=== PATIENT | male | born 1970 | race Two or more races ===

== ENCOUNTER → 2021-05-18 15:36 | Outpatient (CLI) | payer BC, SELFPAY ==
--- NOTE | 2021-05-18 | COLBX_PTH ---
PAT[facility]: [facility][id number] AGE/SX: 54/M ROOM: RE05/18/[address]: Dr. Sukh Morrell MD : [id number] BED: DIS: SPEC #: [id number] RECD: 05/18/21 14:56 STATUS: DELMY PICKETT #: [id number] REID: 05/18/21 00:[address]: Sukh Morrell DEPT: SURGICAL PATHOLOGY RECD BY: Jarrett Malik ENTERED: 05/19/21 08:47 SP TYPE: COLON BX OTHR DR: No Primary Care Phys WAS Tissues: Rectum, NOS Procedures: Surgery Specimen Level IV HEADER OPERATION: Colonoscopy PRE-OP DIAGNOSIS: Screening; rule out proctitis TISSUE SUBMITTED: Rectal biopsies MICROSCOPIC DIAGNOSIS Rectal biopsy: Fragments of colonic mucosa, no pathologic diagnosis. Negative for proctitis. See comment. JORGE:ignacia 05/20/2021 COMMENT Correlation with clinical, endoscopic findings and appropriate follow up are necessary. MICROSCOPIC DESCRIPTION Slides are reviewed. GROSS DESCRIPTION Received in fixative is one container labeled with the patient's name and designated rectal biopsy. The specimen consists of multiple irregular fragments of light gan soft tissue that in aggregate measure 0.5 x 0.4 x 0.1 cm. The specimen is totally submitted in one cassette. / SJ:ignacia 05/19/21 TC:4 CPT: 45359
== END ==
PROVIDERS: Referring Provider Internal Medicine Gastroenterology; Visit Provider Internal Medicine Gastroenterology
DX: Z12.11 Encounter for screening for malignant neoplasm of colon (principal)
CPT/HCPCS: 88305

== ENCOUNTER → 2024-08-21 | Outpatient (CLI) | payer BC, SELFPAY ==
[2024-08-21 17:03] LABS: Absolute Neutrophil Count 3.3 X10^3/uL (2.0-7.7); Basophil# 0.03 X10^3/uL; Basophil% 0.5 % (0-1); Eosinophil# 0.08 X10^3/uL; Eosinophils% 1.4 % (0-5); Hematocrit 40.4 % (40-54); Hemoglobin 13.4 g/dL (13.0-16.5); Lymphocyte % 30.8 % (19-41); Mean Corp Hgb Conc 33.2 g/dL (32-36); Mean Corpuscular Hgb 26.5 pg (27.0-32.0); Mean Platelet Vol. 11.6 fl (6.2-12.0); Monocyte# 0.45 X10^3/uL; Monocyte% 8.2 % (0-10); NRBC Flagged by Analyzer 0 % (0-5); Neutrophil # 3.25 X10^3/uL (2.7-7.7); Neutrophil % 58.9 % (47-70); Platelet Count 325 K/mm3 (150-450); RBC Distribution Width CV 14.9 % (11.6-14.6); RBC Distribution Width SD 42.8 fl (35.1-43.9); Red Blood Count 5.05 M/mm3 (4.6-6.2); White Blood Count 5.5 K/mm3 (4.4-11.0)
[2024-08-21 17:08] LABS: Erythrocyte Sedimentation Rate 11 mm/hr (0-20)
[2024-08-21 17:33] LABS: ALB/GLOB Ratio 0.9 RATIO (0.9-2.4); AST(SGOT) 23 U/L (15-37); Alanine Aminotransfer ALT/SGPT 36 U/L (16-61); Albumin, Serum 3.5 g/dL (3.2-5.0); Alkaline Phosphatase 112 U/L (45-117); Anion Gap 6 (5-15); BUN 14 mg/dL (7-18); BUN/Creat Ratio 12.6 RATIO (10-20); CRP < 2.90 mg/L (0.0-3.0); Calcium,Total 8.5 mg/dL (8.5-10.1); Chloride 108 mmol/L (98-107); Cholesterol 138 mg/dL (200); Creatinine, Serum 1.11 mg/dL (0.70-1.30); EST Glomerular Filtration Rate 73 mL/min (>60); Est Glom Filt Rate - Afr Amer 88 mL/min (>60); Globulin 3.7 g/dL (2.2-4.2); Glucose 119 mg/dL (74-106); High Density Lipoprotein 26 mg/dL; Potassium 3.5 mmol/L (3.5-5.1); Protein, Total 7.2 g/dL (6.4-8.2); Rheumatoid Factor < 10.0 IU/mL (<15); Sodium Level 138 mmol/L (136-145); Triglycerides 487 mg/dL
--- OUTSIDE RECORDS SUMMARY | 2024-08-21 19:54 | XMS RPT_ITS | CCD ---
Author Organization [facility] CliniSyid Care Team Providers Care Manager Fund Name Role Phone Sonny Joe Unavailable Unavailable Unknown, Referring Provider Unavailable Unav ailable Medications Completed/Discontinued Medications Medication Drug Class(es) Dates Sig (Normalized) Sig (Original) cholecalciferol 1000 unt oral capsule (1 source) Vitamin D Vitamin D3 25 MC G (1000 UT) Oral Capsule Refills: 0 Active colchicine 0.6 mg oral capsule (1 source) Start: 03-27-2020 take 1 tablet by mouth once daily Colchicine 0.6 MG Oral Capsule Take 1 tablet daily Quantity: 30 Refills: 5 Sonny Joe MD Start : 27-Mar-2020 Active docosahexaenoic acid 120 mg / eicosapentaenoic acid 180 mg oral capsule (1 source) Fish Oil 1000 MG Oral Capsule Refills: 0 Active Glucosamine (1 source) Glucosamine TABS Refills: 0 Active Problems Active Problems Problem Classification Problem Date Documented Da te Episodic/Chronic Other connective tissue disease (1 source) Behcet's syndrome; 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 Rheumatoid arthritis and related disease (1 source) Rheumatoid arthritis; Translations: [Rheumatoid arthritis, adult] Chronic Past or Other Problems Problem Classification Problem Date Documented Da te Episodic/Chronic NEGATED: Highlighted row has not occurred!Residual codes; unclassified (2 sources) Disease Episodic Results Test Name Value Interpretation Reference Range Facility [facility] MARAH ESPINOZA ([id number]) 1970 Shadia VIRAMONTES Date Time Provider Department 08/30/21 SANDRA FRANCESCO [facility] During your visit today, we recorded the following information about you: Los Guadalupe MD 08/31/2021 9:21 AM Signed Culture from his finger showed multiple bacteria. One of the bacteria appears resistant to the antibiotic prescribed. If his finger is not improving a different prescription may need sent in. Edith Garcia LPN 08/31/2021 3:23 PM Signed Left message for patient to return call for results and recommendations.Edith Montoya Ma 09/01/2021 9:02 AM Signed x2 attempt to reach patient. Unable to reach patient. Left VM to return call to office. Please read below and advise. Jeimy Tam 09/02/2021 3:04 PM Signed Left detailed message on a secured voicemail. Kenny Montoya Ma 09/02/2021 3:17 PM Signed Patient notified of results, verbalizes understanding of instructions. Allergies As of Date: 08/30/2021 (No Known Allergies) Date Reviewed: 08/27/2021 Reviewed by: Edith Garcia LPN - Fully Assessed Reason for Visit: Results [95] Cmt: wound Cx Prescriptions as of 09/02/2021 - cephALEXin (KEFLEX) 500 mg capsule Take 1 capsule by mouth four times daily for 10 days. - chlorhexidine (HIBICLENS) 4 % external liquid Apply to affected area once daily as needed for up to 10 days. - methotrexate 2.5 mg tablet TAKE 6 TABLETS BY MOUTH EVERY TUESDAY. - folic acid 1 mg tablet Take 1 tablet by mouth once daily. Problem List As Of Date 08/30/2021 Noted Resolved Inflammatory arthritis [M19.90] 12/25/2018 Pain in left wrist [M25.532] 12/25/2018 08/31/2019 Rheumatoid arthritis of multiple sites with neg*01/18/2019 High risk medication use [Z79.899] 01/18/2019 Encounter Status:Closed by KENNY TAM on 09/02/21 [facility] CNOVon 08-27-2021 CNOV Office Visit (UCWSTR ) MARAH ESPINOZA ([id number]) 1970 M ANA M Date Time Provider Department 08/27/21 6:00 PM GEOVANY YUSUF During your visit today, we recorded the following information about you: Temperature Pulse Respiration Blood pressure 97.5 degrees 76/minute 18/minute 144/84 Weight 79.5 kg Geovany Yusuf PA-C 08/31/2021 8:43 PM Signed Subjective HPI HPI Marah Espinoza is a 50 year old male who presents today for CC of progressive redness and tenderness of third digit that started 10 days ago. Has gotten worse since. Progressive redness and tenderness. No fevers/chills. Notes that he has a bad habit of biting his fingernails. BP 144/84 Pulse 76 Temp 36.4 ?C (97.5 ?F) (Tympanic) Resp 18 Wt 79.5 kg (175 lb 3.2 oz) SpO2 98% BMI 25.14 kg/m? ALLERGIES No Known Allergies ACTIVE PROBLEM LIST Inflammatory Arthritis Rheumatoid Arthritis of Multiple Sites With Negative Rheumatoid Factor (Hcc) High Risk Medication Use No family history on file. Social History Tobacco Use - Smoking status: Never Smoker - Smokeless tobacco: Never Used Substance Use Topics - Alcohol use: No - Drug use: No Review of Systems Constitutional: Negative for chills and fever. Objective Physical Exam Musculoskeletal: Hands: Comments: Erythematous area of fluctuance noted in paronychial region along nail's edge ulnar aspect - markedly tender to palpation. ASSESSMENT/PLAN: 1. Paronychia of finger, right - ICD9: 681.02, ICD10: L03.011 Clinical presentation c/w paronychia. IANDD performed w/ 18 G needle; Purulent discharge expressed and sent for culture. Will go ahead and treat empirically w/ keflex, and adjust treatment as necessary pending results. Discussed medication indications, proper use, and potential adverse effects. All questions and concerns addressed to patient satisfaction. Advise warm soaks, chlorhexidine antiseptic rinse rxed per pt request. - WOUND CULTURE AND GRAM STAIN - CEPHALEXIN 500 MG CAPSULE - CHLORHEXIDINE GLUCONATE 4 % TOPICAL LIQUID Pt advised to see PCP if symptoms persist or progress. Reviewed red flags with patient and when to seek care sooner. The patient indicates understanding of these issues and agrees with the plan. ERIC Lozoya PA-C 08/27/2021 6:46 PM Signed Continue to do warm soaks with antiseptic rinse 3-4 times/day, for at least 10-15 minutes per time - avoid squeezing digit excessively Will continue to spontaneously drain Start on oral antibiotics- 1 pill four times daily for ten days Watch for any spreading redness Referring Provider: SELF [200] Allergies As of Date: 08/27/2021 (No Known Allergies) Date Reviewed: 08/27/2021 Reviewed by: Edith Garcia LPN - Fully Assessed Reason for Visit: infected finger [Other] Cmt: x 10 days middle finger of right hand Primary Visit Diagnosis:Paronychia of finger, right [L03.011] Order(s):WOUND CULTURE AND GRAM STAIN [SQWCUL] Order #: [id number]. #:[id number] cephALEXin (KEFLEX) 500 mg capsuleTake 1 capsule by mouth four times daily for 10 days.Disp: 40 capsuleRfl: 0 chlorhexidine (HIBICLENS) 4 % external liquidApply to affected area once daily as needed for up to 10 days.Disp: 118 mLRfl: 1 Prescriptions as of 08/31/2021 - cephALEXin (KEFLEX) 500 mg capsule Take 1 capsule by mouth four times daily for 10 days. - chlorhexidine (HIBICLENS) 4 % external liquid Apply to affected area once daily as needed for up to 10 days. - methotrexate 2.5 mg tablet TAKE 6 TABLETS BY MOUTH EVERY TUESDAY. - folic acid 1 mg tablet Take 1 tablet by mouth once daily. Problem List As Of Date 08/27/2021 Noted Resolved Inflammatory arthritis [M19.90] 12/25/2018 Pain in left wrist [M25.532] 12/25/2018 08/31/2019 Rheumatoid arthritis of multiple sites with neg*01/18/2019 High risk medication use [Z79.899] 01/18/2019 Other instructions from your clinician: Continue to do warm soaks with antiseptic rinse 3-4 times/day, for at least 10-15 minutes per time - avoid squeezing digit excessively Will continue to spontaneously drain Start on oral antibiotics- 1 pill four times daily for ten days Watch for any spreading redness Prescriptions ordered this encounter Disp Refills Start End CEPHALEXIN 500 MG CAPSULE 40 c* 0 08/27/2021 09/06/2021 Route: ORAL Sig: Take 1 capsule by mouth four times daily for 10 days. CHLORHEXIDINE GLUCONATE 4 % TOPICAL * 118 * 1 08/27/2021 09/06/2021 Route: TOPICAL Sig: Apply to affected area once daily as needed for up to 10 days. Encounter Status:Closed by GEOVANY YUSUF on 08/31/21 Normal [facility] Wound Culture/Stainon 2020 Wound Culture/Stain Sp. Request/Comment: - Swab Smear Result - Rare Gram positive cocci --> ABNORMAL ALERT Rare --> ABNORMAL ALERT Gram negative bacilli --> ABNORMAL ALERT Rare Polymorphonuclear leukocytes Culture Result - Few Citrobacter freundii complex --> ABNORMAL ALERT Rare --> ABNORMAL ALERT Staphylococcus aureus --> ABNORMAL ALERT For wound culture, tissue or aspirates are superior to swab specimens. If a swab must be used, eSwab is preferred. ORGANISM: Citrobacter freundii complex METHOD: Minimum inhibitory concentration(Vitek) Antibiotic Interp TIM Status Ampicillin RESISTANT F Gentamicin SUSCEPTIBLE <=1 F Trimeth sulfameth SUSCEPTIBLE <=20 F Cefazolin RESISTANT F Ciprofloxacin SUSCEPTIBLE <=0.25 F Cefepime SUSCEPTIBLE <=1 F Piperacillin/Tazobac SUSCEPTIBLE <=4 F Ceftriaxone SUSCEPTIBLE <=1 F Enterobacter, Citrobacter, Serratia, and Klebsiella (formerly Enterobacter) aerogenes may develop resistance during prolonged therapy with third generation cephalosporins as a result of derepression of AmpC beta lactamase. Meropenem SUSCEPTIBLE <=0.25 F Ertapenem SUSCEPTIBLE <=0.5 F ORGANISM: Staphylococcus aureus METHOD: Minimum inhibitory concentration(Vitek) Antibiotic Interp TIM Status Erythromycin SUSCEPTIBLE <=0.25 F Clindamycin SUSCEPTIBLE 0.25 F Tetracycline SUSCEPTIBLE <=1 F Vancomycin SUSCEPTIBLE 1 F Oxacillin SUSCEPTIBLE 0.5 F Oxacillin susceptible staphylococci are susceptible to other penicillinase stable penicillins, beta lactam/beta lactamase inhibitor combinations, anti staphyloccal cephems, and carbapenems. Trimeth sulfameth SUSCEPTIBLE <=10 F Gentamicin SUSCEPTIBLE <=0.5 F Rifampin SUSCEPTIBLE <=0.5 F Rifampin should not be used alone for antimicrobial therapy. Doxycycline SUSCEPTIBLE <=0.5 F Critically abnormal [facility] Comment on above: Performed By: #### W CUL #### [facility] [address] [place] [address] [facility] [address] [place], [place] [address] HLA-B27 TYPINGon 03-29-2020 HLA-B27 TYPING Negative Normal [facility] Comment on above: Result Comment: This test was developed without FDA review. The test performance characteristics were defined and validated by the [facility] Department of Pathology, under the accreditation guidelines of [facility]. Performed By: #### C MP #### [facility] [address] [place] [address] IHSAN WITH REFLEX TO ENAon IHSAN WITH REFLEX TO LEANNE Negative Normal NEGATIVE [facility] Comment on above: Performed By: #### A NA #### [facility] [address] [place] [address] C-REACTIVE PROTEINon 020 CRP [Mass/Vol] mg/L Normal [facility] Comment on above: Result Comment: REF VALUE < 1.00 Performed By: #### C RP #### [facility] [address] [place] [address] CBCon 03-28-2020 Erythrocyte distribution width (RBC) [Ratio] 12.1 % Normal 11.5 - 14.5 [facility] Comment on above: Performed By: #### C BC #### [facility] [address] [place] [address] Hematocrit (Bld) [Volume fraction] 45.2 % Normal 41.0 - 52.0 [facility] Comment on above: Performed By: #### C BC #### [facility] [address] [place] [address] Hemoglobin (Bld) [Mass/Vol] 15.4 g/dL Normal 13.5 - 17.5 [facility] Comment on above: Performed By: #### C BC #### [facility] [address] [place] [address] MCHC (RBC) [Mass/Vol] 34.1 g/dL Normal 32.0 - 36.0 [facility] Comment on above: Performed By: #### C BC #### [facility] [address] [place] [address] MCV (RBC) [Entitic vol] 88 fL Normal 80 - 100 [facility] Comment on above: Performed By: #### C BC #### [facility] [address] [place] [address] Nucleated RBC/100 WBC (Bld) [Ratio] 0.0 /100 WBC Normal 0.0-0.0 [facility] Comment on above: Performed By: #### C BC #### [facility] [address] [place] [address] Platelets (Bld) [#/Vol] 280 10*3/uL Normal 150 - 450 [facility] Comment on above: Performed By: #### C BC #### [facility] [address] [place] [address] RBC (Bld) [#/Vol] 5.15 x10E12/L Normal 4.50 - 5.90 [facility] Comment on above: Performed By: #### C BC #### [facility] [address] [place] [address] WBC (Bld) [#/Vol] 6.2 10*3/uL Normal 4.4 - 11.3 [facility] Comment on above: Performed By: #### C BC #### [facility] [address] [place] [address] CITRULLINE ANTIBODYon 2019 CITRULLINE ANTIBODY <1 Normal [facility] Comment on above: Result Comment: THE TEST FOR ANTIBODIES SPECIFIC FOR CYCLIC CITRULLINATED PEPTIDE (CCP) HAS SHOWN TO BE VALUABLE IN THE DIAGNOSIS OF RHEUMATOID ARTHRITIS. THE DIAGNOSTIC VALUE OF ANTIBODIES TO CCP IN JUVENILE RHEUMATOID ARTHRITIS PATIENTS HAS NOT BEEN DETERMINED. ANTIBODIES TO CENTROMERE OR SS-A AND MYELOMA IGG MAY BE REACTIVE IN THIS ASSAY. REF VALUES NEGATIVE < 3 U/ML POSITIVE >=3 U/ML Performed By: #### C ITAB #### [facility] [address] [place] [address] COMPREHENSIVE PANELon 2019 Albumin [Mass/Vol] 4.5 g/dL Normal 3.4 - 5.0 [facility] Comment on above: Performed By: #### C MP #### [facility] [address] [place] [address] ALP [Catalytic activity/Vol] 54 U/L Normal 33 - 120 [facility] Comment on above: Performed By: #### C MP #### [facility] [address] [place] [address] ALT [Catalytic activity/Vol] 29 U/L Normal 10 - 52 [facility] Comment on above: Result Comment: Noreen ents treated with Sulfasalazine may generate falsely decreased results for ALT. Performed By: #### C MP #### [facility] [address] [place] [address] Anion gap [Moles/Vol] 13 mmol/L Normal 10 - 20 [facility] Comment on above: Performed By: #### C MP #### [facility] [address] [place] [address] AST [Catalytic activity/Vol] 18 U/L Normal 9 - 39 [facility] Comment on above: Performed By: #### C MP #### [facility] [address] [place] [address] Bilirubin [Mass/Vol] 0.4 mg/dL Normal 0.0 - 1.2 [facility] Comment on above: Performed By: #### C MP #### [facility] [address] [place] [address] Calcium [Mass/Vol] 10.1 mg/dL Normal 8.6 - 10.6 [facility] Comment on above: Performed By: #### C MP #### [facility] [address] [place] [address] Chloride [Moles/Vol] 105 mmol/L Normal 98 - 107 [facility] Comment on above: Performed By: #### C MP #### [facility] [address] [place] [address] Creatinine [Mass/Vol] 0.91 mg/dL Normal 0.50 - 1.30 [facility] Comment on above: Performed By: #### C MP #### [facility] [address] [place] [address] GFR- AM. >60 Normal >60 [facility] Comment on above: Result Comment: CALC ULATIONS OF ESTIMATED GFR ARE PERFORMED USING THE MDRD STUDY EQUATION FOR THE IDMS-TRACEABLE CREATININE METHODS. CLIN CHEM 2007;53:766-72 Performed By: #### C MP #### [facility] [address] [place] [address] GFR-NON AM. >60 Normal >60 [facility] Comment on above: Performed By: #### C MP #### [facility] [address] [place] [address] Glucose [Mass/Vol] 89 mg/dL Normal 74 - 99 [facility] Comment on above: Performed By: #### C MP #### [facility] [address] [place] [address] HCO3 (Bld) [Moles/Vol] 28 mmol/L Normal 21 - 32 [facility] Comment on above: Performed By: #### C MP #### [facility] [address] [place] [address] Potassium [Moles/Vol] 4.6 mmol/L Normal 3.5 - 5.3 [facility] Comment on above: Performed By: #### C MP #### [facility] [address] [place] [address] Protein [Mass/Vol] 7.1 g/dL Normal 6.4 - 8.2 [facility] Comment on above: Performed By: #### C MP #### [facility] [address] [place] [address] Sodium [Moles/Vol] 141 mmol/L Normal 136 - 145 [facility] Comment on above: Performed By: #### C MP #### [facility] [address] [place] [address] Urea nitrogen [Mass/Vol] 16 mg/dL Normal 6 - 23 [facility] Comment on above: Performed By: #### C MP #### [facility] [address] [place], [place] RHEUMATOID FACTORon 03-28-20 20 RHEUMATOID FACTOR <10 Normal 0 - 15 [facility] Comment on above: Performed By: #### R F #### [facility] [address] [place], [place] URIC ACIDon 03-28-2020 Urate [Mass/Vol] 3.8 mg/dL Low 4.0 - 7.5 [facility] Comment on above: Result Comment: Jaymie puncture immediately after or during the administration of Metamizole may lead to falsely low results. Testing should be performed immediately prior to Metamizole dosing. Performed By: #### U FATEMEH #### [facility] [address] [place], [place] ELBOW COMPLETE MIN 3 VIEWSon 03-27-2020 ELBOW COMPLETE MIN 3 VIEWS Patient Name: MARAH ESPINOZA STUDY: ELBOW COMPLETE MIN 3 VIEWS; 03/27/2020 4:30 pm INDICATION: pain. COMPARISON: None. ACCESSION NUMBER(S): [id number] ORDERING CLINICIAN: SONNY JOE TECHNIQUE: AP, lateral and oblique images of the left elbow were obtained. FINDINGS: There is no fracture, dislocation or bone destruction. There is no obvious joint effusion. COMPARISON OF FINDINGS: IMPRESSION: Unremarkable left elbow. Electronically signed by: ESAU BURGOS MD Normal [facility] KNEE , 1 OR 2 VIEWSon 2019 KNEE , 1 OR 2 VIEWS Patient Name: MARAH ESPINOZA STUDY: KNEE; 1 OR 2 VIEWS;Right; 03/27/2020 5:02 pm INDICATION: pain. COMPARISON: None. ACCESSION NUMBER(S): [id number] ORDERING CLINICIAN: SONNY JOE FINDINGS: Two views of the right knee. Normal bone mineralization. No visible acute fractures or dislocations. The joint spaces are maintained. No periosteal reaction or cortical erosive changes. The soft tissues appear unremarkable. No significant joint effusion IMPRESSION: No visible acute fractures or dislocations. Electronically signed by: SARAH RAMÍREZ MD Normal [facility] KNEE , 1 OR 2 VIEWS Patient Name: MARAH ESPINOZA STUDY: KNEE; 1 OR 2 VIEWS;Left; 03/27/2020 4:30 pm INDICATION: pain. COMPARISON: None. ACCESSION NUMBER(S): [id number] ORDERING CLINICIAN: SONNY JOE FINDINGS: Weightbearing AP and lateral views of the left knee are obtained. There is no fracture. There is no focal lysis. No articular abnormality is seen. The surrounding soft tissues are unremarkable. IMPRESSION: Normal exam of the left knee. Electronically signed by: KARLEY GARZA MD Normal [facility] SHOULDER, CMPLT MIN 2 VIEWSo n 03-27-2020 SHOULDER, CMPLT MIN 2 VIEWS Patient Name: MARAH ESPINOZA STUDY: SHOULDER, CMPLT, MIN 2 VIEWS;Left; 03/27/2020 4:30 pm INDICATION: pain. COMPARISON: None. ACCESSION NUMBER(S): [id number] ORDERING CLINICIAN: SONNY JOE FINDINGS: Three views of the left shoulder. Normal bone mineralization. No visible acute fractures or dislocations. The joint spaces are maintained. No periosteal reaction or cortical erosive changes. The soft tissues appear unremarkable. IMPRESSION: No visible acute fractures or dislocations. Electronically signed by: SARAH RAMÍREZ MD Normal [facility] WRIST, 2 VIEWSon 03-27-2020 WRIST, 2 VIEWS Patient Name: MARAH ESPINOZA STUDY: WRIST; 2 VIEWS;Left; 03/27/2020 4:45 pm INDICATION: pain. COMPARISON: None. ACCESSION NUMBER(S): [id number] ORDERING CLINICIAN: SONNY JOE FINDINGS: Two views of the left wrist. Normal bone mineralization. No visible acute fractures or dislocations. The joint spaces are maintained. No periosteal reaction or cortical erosive changes. The soft tissues appear unremarkable. IMPRESSION: No visible acute fractures or dislocations. Electronically signed by: SARAH RAMÍREZ MD Normal [facility] OBSOLETEon 11-07-2019 OBSOLETE Refill (RHBATH) MARAH ESPINOZA ([id number]) 1970 M B[place]NER Date Time Provider Department 11/07/19 EKATERINA HANNA TAHMINA During your visit today, we recorded the following information about you: Allergies As of Date: 11/07/2019 (No Known Allergies) Date Reviewed: 08/31/2019 Reviewed by: Jose Herman (Pa) - Fully Assessed Reason for Visit: Refill Request [94] Order(s):[START ON 11/10/2019] methotrexate 2.5 mg tabletTAKE 6 TABLETS BY MOUTH EVERY TUESDAY.Disp: 72 tabletRfl: 0 folic acid 1 mg tabletTake 1 tablet by mouth once daily.Disp: 90 tabletRfl: 1 Prescriptions as of 11/07/2019 Sig: METHOTREXATE SODIUM 2.5 MG TA* TAKE 6 TABLETS BY MOUTH EVERY* FOLIC ACID 1 MG TABLET Take 1 tablet by mouth once d* Problem List As Of Date 11/07/2019 Noted Resolved Inflammatory arthritis [M19.90] 12/25/2018 Pain in left wrist [M25.532] 12/25/2018 08/31/2019 Rheumatoid arthritis of multiple sites with neg*01/18/2019 High risk medication use [Z79.899] 01/18/2019 Prescriptions ordered this encounter Disp Refills Start End METHOTREXATE SODIUM 2.5 MG TABLET 72 t* 0 11/10/2019 05/08/2020 Route: ORAL Sig: TAKE 6 TABLETS BY MOUTH EVERY TUESDAY. FOLIC ACID 1 MG TABLET 90 t* 1 11/07/2019 Route: ORAL Sig: Take 1 tablet by mouth once daily. Medications Discontinued During This Encounter methotrexate 2.5 mg tablet 72 t* 0 08/18/2019 11/07/2019 Route: ORAL Sig: Take 6 tablets by mouth every Tuesday. Disc: Reason for discontinue is not on file. folic acid 1 mg tablet 90 t* 1 08/16/2019 11/07/2019 Route: ORAL Sig: Take 1 tablet by mouth once daily. Disc: Reason for discontinue is not on file. Encounter Status:Closed by JOSE HERMAN PA-C on 11/07/19 [facility] Sed Rateon 09-07-2019 Sed Rate 6 mm/hr Normal 0-15 [facility] Comment on above: Performed By: #### E SR #### [facility] [address] [place] [address] CRPon 09-06-2019 CRP [Mass/Vol] mg/L Normal 0.00-0.[address] [facility] Comment on above: Performed By: #### E SR #### [facility] [address] [place] [address] Comprehensive Panelon 2018 ALP [Catalytic activity/Vol] 79 U/L Normal 45-117 [facility] Comment on above: Performed By: #### E SR #### [facility] [address] [place] [address] Bilirubin [Mass/Vol] 0.3 mg/dL Normal 0.2-1.0 [facility] Comment on above: Performed By: #### E SR #### [facility] [address] [place] [address] Protein [Mass/Vol] 7.4 g/dL Normal 6.4-8.2 [facility] Comment on above: Performed By: #### E SR #### [facility] [address] [place] [address] ALT [Catalytic activity/Vol] 51 U/L Normal 12-78 [facility] Comment on above: Performed By: #### E SR #### [facility] [address] [place] [address] AST [Catalytic activity/Vol] 19 U/L Normal 15-37 [facility] Comment on above: Performed By: #### E SR #### [facility] [address] [place], [place] [address] Creatinine [Mass/Vol] 0.90 mg/dL Normal 0.67-1.17 [facility] Comment on above: Performed By: #### E SR #### [facility] [address] [place] [address] Glucose [Mass/Vol] 78 mg/dL Normal 70-99 [facility] Comment on above: Performed By: #### E SR #### [facility] [address] [place] [address] Albumin [Mass/Vol] 4.1 g/dL Normal 3.4-5.0 [facility] Comment on above: Performed By: #### E SR #### [facility] [address] [place], [place] [address] Anion gap [Moles/Vol] 6 mmol/L Low 8-16 [facility] Comment on above: Performed By: #### E SR #### [facility] [address] [place], [place] [address] Calcium [Mass/Vol] 9.3 mg/dL Normal 8.5-10.1 [facility] Comment on above: Performed By: #### E SR #### [facility] [address] [place], [place] [address] CO2 [Moles/Vol] 31 mmol/L Normal 21-32 [facility] Comment on above: Performed By: #### E SR #### [address] [address] Urea nitrogen [Mass/Vol] 17 mg/dL Normal 7-18 [facility] Comment on above: Performed By: #### E SR #### [address] [address] Chloride [Moles/Vol] 108 mmol/L High 98-107 [facility] Comment on above: Performed By: #### E SR #### [address] [address] Potassium [Moles/Vol] 4.3 mmol/L Normal 3.5-5.1 [facility] Comment on above: Performed By: #### E SR #### [facility] [address] [place], [place] [address] Sodium [Moles/Vol] 141 mmol/L Normal 136-145 [facility] Comment on above: Performed By: #### E SR #### [facility] [address] [place], [place] [address] Hemogram/Diffon 09-06-2019 Abs Immature Grans 0.04 thou/cmm Normal 0.00-0.05 [facility] Comment on above: Performed By: #### F ERR #### [facility] [address] [place] [address] Abs Neut (ANC) 3.95 thou/cmm Normal 1.78-5.38 [facility] Comment on above: Performed By: #### F ERR #### [facility] [address] [place] [address] Abs. Baso 0.03 thou/cmm Normal 0.01-0.08 [facility] Comment on above: Performed By: #### F ERR #### [facility] [address] [place] [address] Abs. Barton 0.48 thou/cmm Normal 0.30-0.82 [facility] Comment on above: Performed By: #### F ERR #### [facility] [address] [place] [address] Basophils/100 WBC (Bld) 0.5 % Normal [facility] Comment on above: Performed By: #### F ERR #### [facility] [address] [place] [address] Eosinophils (Bld) [#/Vol] 0.08 thou/cmm Normal 0.04-0.54 [facility] Comment on above: Performed By: #### F ERR #### [facility] [address] [place] [address] Eosinophils/100 WBC (Bld) 1.2 % Normal [facility] Comment on above: Performed By: #### F ERR #### [facility] [address] [place] [address] Erythrocyte distribution width (RBC) [Ratio] 13.4 % Normal 11.6-14.4 [facility] Comment on above: Performed By: #### F ERR #### [facility] [address] [place] [address] Hematocrit (Bld) [Volume fraction] 47.5 % Normal 40.1-51.0 [facility] Comment on above: Performed By: #### F ERR #### [facility] [address] [place] [address] Hemoglobin (Bld) [Mass/Vol] 15.9 g/dL Normal 13.7-17.5 [facility] Comment on above: Performed By: #### F ERR #### [facility] [address] [place] [address] Immature Grans 0.60 % Normal [facility] Comment on above: Performed By: #### F ERR #### [facility] [address] [place], [place] [address] Lymphocytes (Bld) [#/Vol] 1.89 thou/cmm Normal 0.84-2.85 [facility] Comment on above: Performed By: #### F ERR #### [facility] [address] [place], [place] [address] Lymphocytes/100 WBC (Bld) 29.2 % Normal [facility] Comment on above: Performed By: #### F ERR #### [facility] [address] [place] [address] MCH (RBC) [Entitic mass] 29.4 pg Normal 25.7-32.2 [facility] Comment on above: Performed By: #### F ERR #### [facility] [address] [place] [address] MCHC (RBC) [Mass/Vol] 33.5 % Normal 32.3-36.5 [facility] Comment on above: Performed By: #### F ERR #### [facility] [address] [place] [address] MCV (RBC) [Entitic vol] 88.0 fL Normal 83.2-95.6 [facility] Comment on above: Performed By: #### F ERR #### [facility] [address] [place] [address] Monocytes/100 WBC (Bld) 7.4 % Normal [facility] Comment on above: Performed By: #### F ERR #### [facility] [address] [place] [address] Platelet mean volume (Bld) [Entitic vol] 11.3 fL Normal 8.7-12.0 [facility] Comment on above: Performed By: #### F ERR #### [facility] [address] [place] [id number] Platelets (Bld) [#/Vol] 279 thou/cmm Normal 141-365 [facility] Comment on above: Performed By: #### F ERR #### [facility] [address] [place], [place] [address] RBC (Bld) [#/Vol] 5.40 mil/cmm Normal 4.63-6.08 [facility] Comment on above: Performed By: #### F ERR #### [facility] [address] [place] [address] RDW SD 43.2 fl Normal 36.1-45.8 [facility] Comment on above: Performed By: #### F ERR #### [facility] [address] [place] [address] Seg Neutrophil 61.1 % Normal [facility] Comment on above: Performed By: #### F ERR #### [facility] [address] [place] [address] WBC (Bld) [#/Vol] 6.47 thou/cmm Normal 4.23-9.07 [facility] Comment on above: Performed By: #### F ERR #### [facility] [address] [place] [address] MDRD GFRon 09-06-2019 GFR/1.73 sq M predicted among non-blacks MDRD (S/P/Bld) [Vol rate/Area] mL/min/{1.73_m2} Normal >60mL/min/1.[address] [facility] Comment on above: Result Comment: If t he patient is , multiply the result by 1.210. Performed By: #### E SR #### [facility] [address] [place] [address] CNOVon 08-31-2019 CNOV Office Visit (RHBATH ) MARAH ESPINOZA ([id number]) 1970 [facility] Date Time Provider Department 08/31/19 4:40 PM EKATERINA HANNA During your visit today, we recorded the following information about you: Pulse Blood pressure Weight Height 67/minute 122/70 73.5 kg 1.778 m Jose Herman PA-C 08/31/2019 4:27 PM Signed RHEUMATOLOGY PROGRESS NOTE Patient is here for a follow up visit for Patient presents with: Arthritis: denies any complaints. HPI: Marah Espinoza is a 48 year old male who presents inflammatory arthritis. Reports mild left PIP 2-5 pain, no swelling, no AM stiffness, no side effects to methotrexate. Brief Rheumatological history - He was diagnosed with RA 5 years ago by a science consultant in [place]. He was prescribed Celebrex. He had right knee swelling - aspiration and steroid injection was done. He now has left wrist pain and wrist since 10 days. He denies any triggering events. He took OTC pain medicine SL. He takes Ca-vit D glucosamine. ? Family history of autoimmune disease: father with joint pain. Not formally diagnosed. Siblings have bone and joint pain. Smoking status: Tobacco Use: Never ? Interval Review of Systems CONSTITUTIONAL: Recent Weight change: No Fever: No EYES: Dryness in nose: No Dryness of mouth: No Oral ulcers: No CARDIOVASCULAR: Pain in chest: No RESPIRATORY: Shortness of breath: No Cough: No GASTROINTESTINAL: Nausea: No Vomiting: No Changes in bowel movements: No Jaundice: No Heartburn: No MUSCULOSKELETAL: Per HPI INTEGUMENTARY: Rash: No HEMATOLOGIC/LYMPHATIC: Anemia: No NEUROLOGICAL SYSTEM: Headaches: No Sensitivity or pain of hands and/or feet: No PSYCHIATRIC: Anxiety: No Poor sleep: No History reviewed. No pertinent past medical history. PAST SURGICAL HISTORY Procedure Laterality Date - NONE 12/25/2018 History Review: I have reviewed and modified as needed, the following during this visit: Allergies, Past Medical History, Past Surgical History, Past Family History, Past Social History. BP 122/70 Pulse 67 Ht 177.8 cm (5' 10 ) Wt 73.5 kg (162 lb) SpO2 98% BMI 23.24 kg/m? Physical Exam GENERAL: Well appearing, alert, comfortable, in no acute distress, well-hydrated, well nourished. HEENT: Negative for external ears normal. Canals are clear. Both TMs visualized and are normal. Eye Exam normal. External nose normal, no nasal ulcer or throat ulcer. NECK: NECK Supple, no adenopathy; thyroid symmetric, normal size, no bruits CARDIAC: regular rate and rhythm, No murmur asculated. and Equal peripheral pulses RESPIRATORY: Lungs clear to auscultation. No wheezing, rhonchi, rales VASCULAR: RRR without murmur, gallop, or rubs. No ectopy. NEURO: Motor and sensory exam normal MOTOR: Normal; including tone, gait, stressed gait, power and coordination. SKIN: Negative for alopecia, skin rash, malar rash, skin lesion, skin ulcer, pits, thickening, color changes, telangiectasias, nail changes, nail ridging, nail pitting, onycholysis MUSCULOSKELETAL: DIPS: Normal PIPS: Normal MCPs: Normal Wrists: Normal Elbows: Normal Shoulders: Normal C-Spine: Normal Hips: Normal Knees: Normal Ankles: Normal MTPs / Toes: Normal Arches: Normal Lab Results: Sed Rate, Westergren 8 12/25/2018 CRP 0.77 12/25/201805/2019: CMP normal, CBC normal Serology: Low ferritin Synovial fluid 1667 PMNs 2019 - Negative rheumatoid factor CCP IHSAN ESR 18 URIC ACID 4.6 Normal vitamin D, TSH, PSA Radiology: IMPRESSION: Minimal degenerative change involving the CMC joints of the first digit, bilaterally. ?No acute findings. ?No bony erosions are Identified. IMPRESSION: Unremarkable single AP weightbearing view of both knees. ?No significant osteoarthritis. IMPRESSION: No acute findings. ?No testicular mass, hyperemia, or evidence for testicular torsion. Incidentally noted are trace bilateral hydroceles. Right-sided varicocele. Approximately 4 mm right epididymal head cyst versus spermatocele. Assessment and Plan (M06.09) Rheumatoid arthritis of multiple sites with negative rheumatoid factor (HCC) (primary encounter diagnosis) (Z79.899) High risk medication use (M25.50) Pain in joint, multiple sites 48-year-old male is here for follow up for seronegative rheumatoid arthritis. Patient reports similar episode involving right knee several years ago which was aspirated and had steroid injection. He was prescribed Celebrex for rheumatoid arthritis. RF and CCP were negative. 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 High CRP. Synovial fluid showed 16k PMN, due to clot, cell count cannot be assessed accurately. ? No rash, Raynaud's phenomenon, GI issues. He has chronic low back pain which is triggered with prolonged standing. ? Right wrist pain resolved with prednisone and steroid injection. PIP joint pain likely related tendinitis, if gets worse or swelling occurs, can consider increasing methotrexate. Doing well with methotrexate. Uncontrolled disease can lead to heart problems and malignancies like lymphomas. Labs every 3 months for drug and disease monitoring. ? Knee pain improved, if gets then he may need MRI. Likely mechanical no swelling. He was using glucosamine chondroitin supplements in the past which helped. Can take Tylenol or use topical pain creams if needed. Advised quadriceps strengthening exercises. Office Visit on 08/31/19 - CBC + DIFF - COMP METABOLIC PANEL - C-REACTIVE PROTEIN (CRP) - SED RATE WESTERGREN No orders of the defined types were placed in this encounter. Return in about 3 months (around 12/01/2019) for RA follow up. Ekaterina Hanna MD Referring Provider: EKATERINA HANNA [[id number]] Allergies As of Date: 08/31/2019 (No Known Allergies) Date Reviewed: 08/31/2019 Reviewed by: Jose Shukla) [place] - Fully Assessed Reason for Visit: Arthritis [10] Cmt: denies any complaints. Reason For Visit History Recorded Primary Visit Diagnosis:Rheumatoid arthritis of multiple sites with negative rheumatoid factor (HCC) [M06.09] Other Visit Diagnoses:High risk medication use [Z79.899] Pain in joint, multiple sites [M25.50] Order(s):CBC + DIFF [SQCBCDIF] Order #: [id number] FUTURE COMP METABOLIC PANEL [SQCMP] Order #: [id number] FUTURE C-REACTIVE PROTEIN (CRP) [SQCRP] Order #: [id number] FUTURE SED RATE WESTERGREN [SQWSR] Order #: [id number] FUTURE Prescriptions as of 08/31/2019 Sig: METHOTREXATE SODIUM 2.5 MG TA* Take 6 tablets by mouth every* FOLIC ACID 1 MG TABLET Take 1 tablet by mouth once d* Problem List As Of Date 08/31/2019 Noted Resolved Inflammatory arthritis [M19.90] INVALID FOR* Pain in left wrist [M25.532] INVALID FOR*08/31/2019 Rheumatoid arthritis of multiple sites with neg*INVALID FOR* High risk medication use [Z79.899] INVALID FOR* Disposition: Return in about 3 months (around 12/01/2019) for RA follow up. Follow-up and Disposition History Recorded Questionnaire: JILLIAN HOLLIS YEARLY ADL ASSESSMENT Toileting -> Independent Bathing -> Independent Upper Body Dressing -> Independent Lower Body Dressing -> Independent Grooming/Hygiene -> Independent Self Feeding -> Independent Home Management (laundry/cleaning/chor es/simple meal prep) -> Independent Encounter Status:Closed by EKATERINA HANNA MD on 08/31/19 [facility] PROGRESSon 08-31-2019 PROGRESS HNO ID: [id number] Author: Jose Herman (Pa) Service: ? Author Type: Physician Soil Chemist Type: Progress Notes Filed: 08/31/2019 4:29 PM Note Text: RHEUMATOLOGY PROGRESS NOTE Patient is here for a follow up visit for Patient presents with: Arthritis: denies any complaints. HPI: Marah Espinoza is a 48 year old male who presents inflammatory arthritis. Reports mild left PIP 2-5 pain, no swelling, no AM stiffness, no side effects to methotrexate. Brief Rheumatological history - He was diagnosed with RA 5 years ago by a science consultant in [place]. He was prescribed Celebrex. He had right knee swelling - aspiration and steroid injection was done. He now has left wrist pain and wrist since 10 days. He denies any triggering events. He took OTC pain medicine SL. He takes Ca-vit D glucosamine. ? Family history of autoimmune disease: father with joint pain. Not formally diagnosed. Siblings have bone and joint pain. Smoking status: Tobacco Use: Never ? Interval Review of Systems CONSTITUTIONAL: Recent Weight change: No Fever: No EYES: Dryness in nose: No Dryness of mouth: No Oral ulcers: No CARDIOVASCULAR: Pain in chest: No RESPIRATORY: Shortness of breath: No Cough: No GASTROINTESTINAL: Nausea: No Vomiting: No Changes in bowel movements: No Jaundice: No Heartburn: No MUSCULOSKELETAL: Per HPI INTEGUMENTARY: Rash: No HEMATOLOGIC/LYMPHATIC: Anemia: No NEUROLOGICAL SYSTEM: Headaches: No Sensitivity or pain of hands and/or feet: No PSYCHIATRIC: Anxiety: No Poor sleep: No History reviewed. No pertinent past medical history. PAST SURGICAL HISTORY Procedure Laterality Date - NONE 12/25/2018 History Review: I have reviewed and modified as needed, the following during this visit: Allergies, Past Medical History, Past Surgical History, Past Family History, Past Social History. BP 122/70 Pulse 67 Ht 177.8 cm (5' 10 ) Wt 73.5 kg (162 lb) SpO2 98% BMI 23.24 kg/m? Physical Exam GENERAL: Well appearing, alert, comfortable, in no acute distress, well-hydrated, well nourished. HEENT: Negative for external ears normal. Canals are clear. Both TMs visualized and are normal. Eye Exam normal. External nose normal, no nasal ulcer or throat ulcer. NECK: NECK Supple, no adenopathy; thyroid symmetric, normal size, no bruits CARDIAC: regular rate and rhythm, No murmur asculated. and Equal peripheral pulses RESPIRATORY: Lungs clear to auscultation. No wheezing, rhonchi, rales VASCULAR: RRR without murmur, gallop, or rubs. No ectopy. NEURO: Motor and sensory exam normal MOTOR: Normal; including tone, gait, stressed gait, power and coordination. SKIN: Negative for alopecia, skin rash, malar rash, skin lesion, skin ulcer, pits, thickening, color changes, telangiectasias, nail changes, nail ridging, nail pitting, onycholysis MUSCULOSKELETAL: DIPS: Normal PIPS: Normal MCPs: Normal Wrists: Normal Elbows: Normal Shoulders: Normal C-Spine: Normal Hips: Normal Knees: Normal Ankles: Normal MTPs / Toes: Normal Arches: Normal Lab Results: Sed Rate, Westergren 8 12/25/2018 CRP 0.77 12/25/201805/2019: CMP normal, CBC normal Serology: Low ferritin Synovial fluid 1667 PMNs 2019 - Negative rheumatoid factor CCP IHSAN ESR 18 URIC ACID 4.6 Normal vitamin D, TSH, PSA Radiology: IMPRESSION: Minimal degenerative change involving the CMC joints of the first digit, bilaterally. ?No acute findings. ?No bony erosions are Identified. IMPRESSION: Unremarkable single AP weightbearing view of both knees. ?No significant osteoarthritis. IMPRESSION: No acute findings. ?No testicular mass, hyperemia, or evidence for testicular torsion. Incidentally noted are trace bilateral hydroceles. Right-sided varicocele. Approximately 4 mm right epididymal head cyst versus spermatocele. Assessment and Plan (M06.09) Rheumatoid arthritis of multiple sites with negative rheumatoid factor (HCC) (primary encounter diagnosis) (Z79.899) High risk medication use (M25.50) Pain in joint, multiple sites 48-year-old male is here for follow up for seronegative rheumatoid arthritis. Patient reports similar episode involving right knee several years ago which was aspirated and had steroid injection. He was prescribed Celebrex for rheumatoid arthritis. RF and CCP were negative. 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 High CRP. Synovial fluid showed 16k PMN, due to clot, cell count cannot be assessed accurately. ? No rash, Raynaud's phenomenon, GI issues. He has chronic low back pain which is triggered with prolonged standing. ? Right wrist pain resolved with prednisone and steroid injection. PIP joint pain likely related tendinitis, if gets worse or swelling occurs, can consider increasing methotrexate. Doing well with methotrexate. Uncontrolled disease can lead to heart problems and malignancies like lymphomas. Labs every 3 months for drug and disease monitoring. ? Knee pain improved, if gets then he may need MRI. Likely mechanical no swelling. He was using glucosamine chondroitin supplements in the past which helped. Can take Tylenol or use topical pain creams if needed. Advised quadriceps strengthening exercises. Office Visit on 08/31/19 - CBC + DIFF - COMP METABOLIC PANEL - C-REACTIVE PROTEIN (CRP) - SED RATE WESTERGREN No orders of the defined types were placed in this encounter. Return in about 3 months (around 12/01/2019) for RA follow up. Ekaterina Hanna MD [facility] CNCOon 06-05-2019 CNCO Letter Text [facility] OBSOLETEon 06-04-2019 OBSOLETE Refill (RHBATH) MARAH ESPINOZA ([id number]) 1970 [facility] Date Time Provider Department 06/04/19 EKATERINA HANNA During your visit today, we recorded the following information about you: Alee An MA 06/04/2019 4:43 PM Signed Pharmacy faxed requesting the following refill. Pending Prescriptions Disp Refills METHOTREXATE SODIUM 2.5 MG TABLET 24 tablet 2 Sig: Take 6 tablets by mouth every Tuesday. [place]: No Patient last appointment: 06/01/2019 Next Appointment: 08/31/2019 Patient Phone numbers: [phone] (home) Request is for script(s) to be escript to pharmacy. Alee An MA Allergies As of Date: 06/04/2019 (No Known Allergies) Date Reviewed: 06/01/2019 [facility]ed by: [facility] Michael - Fully Assessed Reason for Visit: Refill Request [94] Order(s):[START ON 06/09/2019] methotrexate 2.5 mg tabletTake 6 tablets by mouth every Tuesday.Disp: 24 tabletRfl: 2 Prescriptions as of 06/04/2019 Sig: METHOTREXATE SODIUM 2.5 MG TA* Take 6 tablets by mouth every* FOLIC ACID 1 MG TABLET Take 1 tablet by mouth once d* Problem List As Of Date 06/04/2019 Noted Resolved Inflammatory arthritis [M19.90] INVALID FOR* Pain in left wrist [M25.532] INVALID FOR* Rheumatoid arthritis of multiple sites with neg*INVALID FOR* High risk medication use [Z79.899] INVALID FOR* Prescriptions ordered this encounter Disp Refills Start End METHOTREXATE SODIUM 2.5 MG TABLET 24 t* 2 06/09/2019 Route: ORAL Sig: Take 6 tablets by mouth every Tuesday. Medications Discontinued During This Encounter methotrexate 2.5 mg tablet 24 t* 2 04/07/2019 06/05/2019 Route: ORAL Sig: Take 6 tablets by mouth every Tuesday. Disc: Reason for discontinue is not on file. Encounter Status:Closed by EKATERINA HANNA MD on 06/05/19 [facility] CNOVon 06-01-2019 CNOV Office Visit (TAHMINA ) MARAH ESPINOZA ([id number]) 1970 [facility] Date Time Provider Department 06/01/19 4:00 PM EKATERINA HANNA During your visit today, we recorded the following information about you: Pulse Blood pressure Weight Height 83/minute 120/78 75.3 kg 1.778 m Ekaterina Hanna MD 06/01/2019 4:23 PM Signed RHEUMATOLOGY PROGRESS NOTE Patient is here for a follow up visit for Patient presents with: Arthritis: denies any pain or swelling. HPI: Marah Espinoza is a 48 year old male who presents inflammatory arthritis. Feels better. Took prednisone 7-8 days then stopped. Reports significant improvement with methotrexate. Had diarrhea for some days but that improved. Denies any pain. Brief Rheumatological history - He was diagnosed with RA 5 years ago by a science consultant in [place]. He was prescribed Celebrex. He had right knee swelling - aspiration and steroid injection was done. He now has left wrist pain and wrist since 10 days. He denies any triggering events. He took OTC pain medicine SL. He takes Ca-vit D glucosamine. ? Family history of autoimmune disease: father with joint pain. Not formally diagnosed. Siblings have bone and joint pain. Smoking status: Tobacco Use: Never ? Interval Review of Systems CONSTITUTIONAL: Recent Weight change: No Fever: No EYES: Dryness in nose: No Dryness of mouth: No Oral ulcers: No CARDIOVASCULAR: Pain in chest: No RESPIRATORY: Shortness of breath: No Cough: No GASTROINTESTINAL: Nausea: No Vomiting: No Changes in bowel movements: No Jaundice: No Heartburn: No MUSCULOSKELETAL: Per HPI INTEGUMENTARY: Rash: No HEMATOLOGIC/LYMPHATIC: Anemia: No NEUROLOGICAL SYSTEM: Headaches: No Sensitivity or pain of hands and/or feet: No PSYCHIATRIC: Anxiety: No Poor sleep: No History reviewed. No pertinent past medical history. PAST SURGICAL HISTORY Procedure Laterality Date - NONE 12/25/2018 History Review: I have reviewed and modified as needed, the following during this visit: Allergies, Past Medical History, Past Surgical History, Past Family History, Past Social History. BP 120/78 Pulse 83 Ht 177.8 cm (5' 10 ) Wt 75.3 kg (166 lb) SpO2 99% BMI 23.82 kg/m? Physical Exam GENERAL: Well appearing, alert, comfortable, in no acute distress, well-hydrated, well nourished. HEENT: Negative for external ears normal. Canals are clear. Both TMs visualized and are normal. Eye Exam normal. External nose normal, no nasal ulcer or throat ulcer. NECK: NECK Supple, no adenopathy; thyroid symmetric, normal size, no bruits CARDIAC: regular rate and rhythm, No murmur asculated. and Equal peripheral pulses RESPIRATORY: Lungs clear to auscultation. No wheezing, rhonchi, rales VASCULAR: RRR without murmur, gallop, or rubs. No ectopy. NEURO: Motor and sensory exam normal MOTOR: Normal; including tone, gait, stressed gait, power and coordination. SKIN: Negative for alopecia, skin rash, malar rash, skin lesion, skin ulcer, pits, thickening, color changes, telangiectasias, nail changes, nail ridging, nail pitting, onycholysis MUSCULOSKELETAL: DIPS: Normal PIPS: Normal MCPs: Normal Wrists: Normal Elbows: Normal Shoulders: Normal C-Spine: Normal Hips: Normal Knees: Normal Ankles: Normal MTPs / Toes: Normal Arches: Normal Lab Results: Sed Rate, Rogerren 8 12/25/2018 CRP 0.77 12/25/2018 Serology: Low ferritin Synovial fluid 1667 PMNs 2019 - Negative rheumatoid factor CCP IHSAN ESR 18 URIC ACID 4.6 Normal vitamin D, TSH, PSA Radiology: IMPRESSION: Minimal degenerative change involving the CMC joints of the first digit, bilaterally. ?No acute findings. ?No bony erosions are Identified. IMPRESSION: Unremarkable single AP weightbearing view of both knees. ?No significant osteoarthritis. IMPRESSION: No acute findings. ?No testicular mass, hyperemia, or evidence for testicular torsion. Incidentally noted are trace bilateral hydroceles. Right-sided varicocele. Approximately 4 mm right epididymal head cyst versus spermatocele. Assessment and Plan (Z79.899) High risk medication use (primary encounter diagnosis) (M06.09) Rheumatoid arthritis of multiple sites with negative rheumatoid factor (HCC) (M19.90) Inflammatory arthritis 48-year-old male is here for follow up for seronegative rheumatoid arthritis. Patient reports similar episode involving right knee several years ago which was aspirated and had steroid injection. He was prescribed Celebrex for rheumatoid arthritis. RF and CCP were negative. 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 High CRP. Synovial fluid showed 16k PMN, due to clot, cell count cannot be assessed accurately. ? No rash, Raynaud's phenomenon, GI issues. He has chronic low back pain which is triggered with prolonged standing. ? Right wrist pain resolved with prednisone and steroid injection. Doing well with methotrexate. Again had a long discussion about the importance of long-term treatment. Can control disease can lead to heart problems and malignancies like lymphomas. Labs today and if normal labs every 3 months. ? If knee pain does not improve then he may need MRI. Likely mechanical no swelling. He was using glucosamine chondroitin supplements in the past which helped. He tries to go back. Can take Tylenol or use topical pain creams if needed. Advised quadriceps strengthening exercises. Office Visit on 06/01/19 - CBC + DIFF - COMP METABOLIC PANEL No orders of the defined types were placed in this encounter. Return in about 3 months (around 09/01/2019) for rheumatoid arthritis. Ekaterina Hanna MD Referring Provider: EKATERINA HANNA [[id number]] Allergies As of Date: 06/01/2019 (No Known Allergies) Date Reviewed: 06/01/2019 Reviewed by: Leigh Ann StroudCrichton Rehabilitation CenterBijal Rodriguez - Fully Assessed Reason for Visit: Arthritis [10] Cmt: denies any pain or swelling. Primary Visit Diagnosis:High risk medication use [Z79.899] Other Visit Diagnoses:Rheumatoid arthritis of multiple sites with negative rheumatoid factor (HCC) [M06.09] Inflammatory arthritis [M19.90] Order(s):CBC + DIFF [SQCBCDIF] Order #: [id number] FUTURE COMP METABOLIC PANEL [SQCMP] Order #: [id number] FUTURE Prescriptions as of 06/01/2019 Sig: METHOTREXATE SODIUM 2.5 MG TA* Take 6 tablets by mouth every* FOLIC ACID 1 MG TABLET Take 1 tablet by mouth once d* Problem List As Of Date 06/01/2019 Noted Resolved Inflammatory arthritis [M19.90] INVALID FOR* Pain in left wrist [M25.532] INVALID FOR* Rheumatoid arthritis of multiple sites with neg*INVALID FOR* High risk medication use [Z79.899] INVALID FOR* Disposition: Return in about 3 months (around 09/01/2019) for rheumatoid arthritis. Follow-up and Disposition History Recorded Questionnaire: JILLIAN HOLLIS YEARLY ADL ASSESSMENT Toileting -> Independent Bathing -> Independent Upper Body Dressing -> Independent Lower Body Dressing -> Independent Grooming/Hygiene -> Independent Self Feeding -> Independent Home Management (laundry/cleaning/chor es/simple meal prep) -> Independent Encounter Status:Closed by EKATERINA HANNA MD on 06/01/19 Normal [facility] Comprehensive Panelon 2018 ALP [Catalytic activity/Vol] 72 U/L Normal 45-117 [facility] Comment on above: Performed By: #### F ERR #### [address] [address] Bilirubin [Mass/Vol] 0.4 mg/dL Normal 0.2-1.0 [facility] Comment on above: Performed By: #### F ERR #### [address] [address] Creatinine [Mass/Vol] 1.17 mg/dL Normal 0.67-1.17 [facility] Comment on above: Performed By: #### F ERR #### [facility] [address] [place], [place] [address] Protein [Mass/Vol] 7.0 g/dL Normal 6.4-8.2 [facility] Comment on above: Performed By: #### F ERR #### [facility] [address] [place], [place] [address] ALT [Catalytic activity/Vol] 35 U/L Normal 12-78 [facility] Comment on above: Performed By: #### F ERR #### [address] [place] [address] AST [Catalytic activity/Vol] 15 U/L Normal 15-37 [facility] Comment on above: Performed By: #### F ERR #### [facility] [address] [place], [place] [address] Albumin [Mass/Vol] 3.9 g/dL Normal 3.4-5.0 [facility] Comment on above: Performed By: #### F ERR #### [facility] [address] [place], [place] [address] Anion gap [Moles/Vol] 8 mmol/L Normal 8-16 [facility] Comment on above: Performed By: #### F ERR #### [facility] [address] [place], [place] [address] Calcium [Mass/Vol] 8.8 mg/dL Normal 8.5-10.1 [facility] Comment on above: Performed By: #### F ERR #### [facility] [address] [place], [place] [address] CO2 [Moles/Vol] 27 mmol/L Normal 21-32 [facility] Comment on above: Performed By: #### F ERR #### [facility] [address] [place], [place] [address] Glucose [Mass/Vol] 95 mg/dL Normal 70-99 [facility] Comment on above: Performed By: #### F ERR #### [facility] [address] [place], [place] [address] Urea nitrogen [Mass/Vol] 13 mg/dL Normal 7-18 [facility] Comment on above: Performed By: #### F ERR #### [facility] [address] [place], [place] [address] Chloride [Moles/Vol] 108 mmol/L High 98-107 [facility] Comment on above: Performed By: #### F ERR #### [facility] [address] [place], [place] [address] Potassium [Moles/Vol] 4.0 mmol/L Normal 3.5-5.1 [facility] Comment on above: Performed By: #### F ERR #### [facility] [address] [place], [place] [address] Sodium [Moles/Vol] 139 mmol/L Normal 136-145 [facility] Comment on above: Performed By: #### F ERR #### [facility] [address] [place] [address] Hemogram/Diffon 06-01-2019 Abs Immature Grans 0.02 thou/cmm Normal 0.00-0.05 [facility] Comment on above: Performed By: #### F ERR #### [facility] [address] [place] [address] Abs Neut (ANC) 4.13 thou/cmm Normal 1.78-5.38 [facility] Comment on above: Performed By: #### F ERR #### [place] [address] Abs. Baso 0.02 thou/cmm Normal 0.01-0.08 [facility] Comment on above: Performed By: #### F ERR #### [place] [address] Abs. Barton 0.50 thou/cmm Normal 0.30-0.82 [facility] Comment on above: Performed By: #### F ERR #### [place] [address] Basophils/100 WBC (Bld) 0.3 % Normal [facility] Comment on above: Performed By: #### F ERR #### [place] [address] Eosinophils (Bld) [#/Vol] 0.05 thou/cmm Normal 0.04-0.54 [facility] Comment on above: Performed By: #### F ERR #### [place] [address] Eosinophils/100 WBC (Bld) 0.8 % Normal [facility] Comment on above: Performed By: #### F ERR #### [place] [address] Erythrocyte distribution width (RBC) [Ratio] 13.7 % Normal 11.6-14.4 [facility] Comment on above: Performed By: #### F ERR #### [facility] [address] [place], [place] [address] Hematocrit (Bld) [Volume fraction] 42.2 % Normal 40.1-51.0 [facility] Comment on above: Performed By: #### F ERR #### [facility] [address] [place], [place] [address] Hemoglobin (Bld) [Mass/Vol] 14.2 g/dL Normal 13.7-17.5 [facility] Comment on above: Performed By: #### F ERR #### [facility] [address] [place], [place] [address] Immature Grans 0.30 % Normal [facility] Comment on above: Performed By: #### F ERR #### [facility] [address] [place] [address] Lymphocytes (Bld) [#/Vol] 1.53 thou/cmm Normal 0.84-2.85 [facility] Comment on above: Performed By: #### F ERR #### [facility] [address] [place], [place] [address] Lymphocytes/100 WBC (Bld) 24.5 % Normal [facility] Comment on above: Performed By: #### F ERR #### [facility] [address] [place], [place] [address] MCH (RBC) [Entitic mass] 28.5 pg Normal 25.7-32.2 [facility] Comment on above: Performed By: #### F ERR #### [facility] [address] [place], [place] [address] MCHC (RBC) [Mass/Vol] 33.6 % Normal 32.3-36.5 [facility] Comment on above: Performed By: #### F ERR #### [facility] [address] [place], [place] [address] MCV (RBC) [Entitic vol] 84.7 fL Normal 83.2-95.6 [facility] Comment on above: Performed By: #### F ERR #### [facility] [address] [place], [place] [address] Monocytes/100 WBC (Bld) 8.0 % Normal [facility] Comment on above: Performed By: #### F ERR #### [facility] [address] [place] [address] Platelet mean volume (Bld) [Entitic vol] 11.1 fL Normal 8.7-12.0 [facility] Comment on above: Performed By: #### F ERR #### [facility] [address] [place] [address] Platelets (Bld) [#/Vol] 257 thou/cmm Normal 141-365 [facility] Comment on above: Performed By: #### F ERR #### [facility] [address] [place] [address] RBC (Bld) [#/Vol] 4.98 mil/cmm Normal 4.63-6.08 [facility] Comment on above: Performed By: #### F ERR #### [place] [address] RDW SD 42.1 fl Normal 36.1-45.8 [facility] Comment on above: Performed By: #### F ERR #### [facility] [address] [place] [address] Seg Neutrophil 66.1 % Normal [facility] Comment on above: Performed By: #### F ERR #### [facility] [address] [place] [address] WBC (Bld) [#/Vol] 6.25 thou/cmm Normal 4.23-9.07 [facility] Comment on above: Performed By: #### F ERR #### [facility] [address] [place] [address] MDRD GFRon 06-01-2019 GFR/1.73 sq M predicted among non-blacks MDRD (S/P/Bld) [Vol rate/Area] mL/min/{1.73_m2} Normal >60mL/min/1.[address] [facility] Comment on above: Result Comment: If t he patient is , multiply the result by 1.210. Performed By: #### F ERR #### [facility] [address] [place] [address] PROGRESSon 06-01-2019 PROGRESS HNO ID: [id number] Author: Ekaterina Hanna Service: ? Author Type: Physician Type: Progress Notes Filed: 06/01/2019 4:23 PM Note Text: RHEUMATOLOGY PROGRESS NOTE Patient is here for a follow up visit for Patient presents with: Arthritis: denies any pain or swelling. HPI: Marah Espinoza is a 48 year old male who presents inflammatory arthritis. Feels better. Took prednisone 7-8 days then stopped. Reports significant improvement with methotrexate. Had diarrhea for some days but that improved. Denies any pain. Brief Rheumatological history - He was diagnosed with RA 5 years ago by a science consultant in [place]. He was prescribed Celebrex. He had right knee swelling - aspiration and steroid injection was done. He now has left wrist pain and wrist since 10 days. He denies any triggering events. He took OTC pain medicine SL. He takes Ca-vit D glucosamine. ? Family history of autoimmune disease: father with joint pain. Not formally diagnosed. Siblings have bone and joint pain. Smoking status: Tobacco Use: Never ? Interval Review of Systems CONSTITUTIONAL: Recent Weight change: No Fever: No EYES: Dryness in nose: No Dryness of mouth: No Oral ulcers: No CARDIOVASCULAR: Pain in chest: No RESPIRATORY: Shortness of breath: No Cough: No GASTROINTESTINAL: Nausea: No Vomiting: No Changes in bowel movements: No Jaundice: No Heartburn: No MUSCULOSKELETAL: Per HPI INTEGUMENTARY: Rash: No HEMATOLOGIC/LYMPHATIC: Anemia: No NEUROLOGICAL SYSTEM: Headaches: No Sensitivity or pain of hands and/or feet: No PSYCHIATRIC: Anxiety: No Poor sleep: No History reviewed. No pertinent past medical history. PAST SURGICAL HISTORY Procedure Laterality Date - NONE 12/25/2018 History Review: I have reviewed and modified as needed, the following during this visit: Allergies, Past Medical History, Past Surgical History, Past Family History, Past Social History. BP 120/78 Pulse 83 Ht 177.8 cm (5' 10 ) Wt 75.3 kg (166 lb) SpO2 99% BMI 23.82 kg/m? Physical Exam GENERAL: Well appearing, alert, comfortable, in no acute distress, well-hydrated, well nourished. HEENT: Negative for external ears normal. Canals are clear. Both TMs visualized and are normal. Eye Exam normal. External nose normal, no nasal ulcer or throat ulcer. NECK: NECK Supple, no adenopathy; thyroid symmetric, normal size, no bruits CARDIAC: regular rate and rhythm, No murmur asculated. and Equal peripheral pulses RESPIRATORY: Lungs clear to auscultation. No wheezing, rhonchi, rales VASCULAR: RRR without murmur, gallop, or rubs. No ectopy. NEURO: Motor and sensory exam normal MOTOR: Normal; including tone, gait, stressed gait, power and coordination. SKIN: Negative for alopecia, skin rash, malar rash, skin lesion, skin ulcer, pits, thickening, color changes, telangiectasias, nail changes, nail ridging, nail pitting, onycholysis MUSCULOSKELETAL: DIPS: Normal PIPS: Normal MCPs: Normal Wrists: Normal Elbows: Normal Shoulders: Normal C-Spine: Normal Hips: Normal Knees: Normal Ankles: Normal MTPs / Toes: Normal Arches: Normal Lab Results: Sed Rate, Westergren 8 12/25/2018 CRP 0.77 12/25/2018 Serology: Low ferritin Synovial fluid 1667 PMNs 2019 - Negative rheumatoid factor CCP IHSAN ESR 18 URIC ACID 4.6 Normal vitamin D, TSH, PSA Radiology: IMPRESSION: Minimal degenerative change involving the CMC joints of the first digit, bilaterally. ?No acute findings. ?No bony erosions are Identified. IMPRESSION: Unremarkable single AP weightbearing view of both knees. ?No significant osteoarthritis. IMPRESSION: No acute findings. ?No testicular mass, hyperemia, or evidence for testicular torsion. Incidentally noted are trace bilateral hydroceles. Right-sided varicocele. Approximately 4 mm right epididymal head cyst versus spermatocele. Assessment and Plan (Z79.899) High risk medication use (primary encounter diagnosis) (M06.09) Rheumatoid arthritis of multiple sites with negative rheumatoid factor (HCC) (M19.90) Inflammatory arthritis 48-year-old male is here for follow up for seronegative rheumatoid arthritis. Patient reports similar episode involving right knee several years ago which was aspirated and had steroid injection. He was prescribed Celebrex for rheumatoid arthritis. RF and CCP were negative. 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 High CRP. Synovial fluid showed 16k PMN, due to clot, cell count cannot be assessed accurately. ? No rash, Raynaud's phenomenon, GI issues. He has chronic low back pain which is triggered with prolonged standing. ? Right wrist pain resolved with prednisone and steroid injection. Doing well with methotrexate. Again had a long discussion about the importance of long-term treatment. Can control disease can lead to heart problems and malignancies like lymphomas. Labs today and if normal labs every 3 months. ? If knee pain does not improve then he may need MRI. Likely mechanical no swelling. He was using glucosamine chondroitin supplements in the past which helped. He tries to go back. Can take Tylenol or use topical pain creams if needed. Advised quadriceps strengthening exercises. Office Visit on 06/01/19 - CBC + DIFF - COMP METABOLIC PANEL No orders of the defined types were placed in this encounter. Return in about 3 months (around 09/01/2019) for rheumatoid arthritis. Ektaerina Hanna MD [facility] OBSOLETEon 04-02-2019 OBSOLETE Refill (RHBATH) MARAH ESPINOZA ([id number]) 1970 [address] Date Time Provider Department 04/02/19 EKATERINA HANNA During your visit today, we recorded the following information about you: Jet Roca CMA 04/02/2019 3:10 PM Signed Pharmacy faxed requesting the following refill. Pending Prescriptions Disp Refills METHOTREXATE SODIUM 2.5 MG TABLET 24 tablet 2 Sig: Take 6 tablets by mouth every Tuesday. SYDNEY: No Patient last appointment: 03/01/2019 Next Appointment: 06/01/2019 Patient Phone numbers: [phone] (home) Request is for script(s) to be escript to pharmacy. JUAN Navarro MD 04/02/2019 3:[address] Hanna patient MD Jet Jarrell CMA 04/02/2019 4:16 PM Signed Pharmacy faxed requesting the following refill. Pending Prescriptions Disp Refills METHOTREXATE SODIUM 2.5 MG TABLET 24 tablet 2 Sig: Take 6 tablets by mouth every Tuesday. SYDNEY: No Refused Prescriptions Disp Refills methotrexate 2.5 mg tablet 24 tablet 2 Sig: Take 6 tablets by mouth every Tuesday. SYDNEY: No Refused By: ASHLIE WHITAKER MD Reason for Refusal: Patient never under Prescriber care Patient last appointment: 03/01/2019 Next Appointment: 06/01/2019 Patient Phone numbers: [phone] (home) Request is for script(s) to be escript to pharmacy. Jet Roca CMA Allergies As of Date: 04/02/2019 (No Known Allergies) Date Reviewed: 03/01/2019 Reviewed by: Ekaterina Hanna - Fully Assessed Reason for Visit: Refill Request [94] Order(s):[START ON 04/07/2019] methotrexate 2.5 mg tabletTake 6 tablets by mouth every Tuesday.Disp: 24 tabletRfl: 2 Prescriptions as of 04/02/2019 Sig: METHOTREXATE SODIUM 2.5 MG TA* Take 6 tablets by mouth every* FOLIC ACID 1 MG TABLET Take 1 tablet by mouth once d* Problem List As Of Date 04/02/2019 Noted Resolved Inflammatory arthritis [M19.90] INVALID FOR* Pain in left wrist [M25.532] INVALID FOR* Rheumatoid arthritis of multiple sites with neg*INVALID FOR* High risk medication use [Z79.899] INVALID FOR* Prescriptions ordered this encounter Disp Refills Start End METHOTREXATE SODIUM 2.5 MG TABLET 24 t* 2 04/07/2019 Route: ORAL Sig: Take 6 tablets by mouth every Tuesday. Medications Discontinued During This Encounter methotrexate 2.5 mg tablet 24 t* 2 03/03/2019 04/02/2019 Route: ORAL Sig: Take 6 tablets by mouth every Tuesday. Disc: Reason for discontinue is not on file. Encounter Status:Closed by EKATERINA HANNA MD on 04/02/19 Normal [facility] CRPon 03-02-2019 CRP [Mass/Vol] mg/L Normal 0.00-0.[address] [facility] Comment on above: Performed By: #### F ERR #### [facility] [address] [place] [address] Comprehensive Panelon 2018 ALP [Catalytic activity/Vol] 90 U/L Normal 46-116 [facility] Comment on above: Performed By: #### F ERR #### [facility] [address] [place], [place] [address] Bilirubin [Mass/Vol] 0.4 mg/dL Normal 0.2-1.0 [facility] Comment on above: Performed By: #### F ERR #### [facility] [address] [place], [place] [address] Protein [Mass/Vol] 7.0 g/dL Normal 6.4-8.2 [facility] Comment on above: Performed By: #### F ERR #### [facility] [address] [place], [place] [address] AST [Catalytic activity/Vol] 20 U/L Normal 9-37 [facility] Comment on above: Performed By: #### F ERR #### [facility] [address] [place], [place] [address] Creatinine [Mass/Vol] 1.19 mg/dL High 0.67-1.17 [facility] Comment on above: Performed By: #### F ERR #### [facility] [address] [place], [place] [address] ALT [Catalytic activity/Vol] 47 U/L Normal 12-78 [facility] Comment on above: Performed By: #### F ERR #### [facility] [address] [place], [place] [address] Albumin [Mass/Vol] 3.8 g/dL Normal 3.4-5.0 [facility] Comment on above: Performed By: #### F ERR #### [facility] [address] [place], [place] [address] Anion gap [Moles/Vol] 10 mmol/L Normal 8-16 [facility] Comment on above: Performed By: #### F ERR #### [facility] [address] [place], [place] [address] CO2 [Moles/Vol] 27 mmol/L Normal 21-32 [facility] Comment on above: Performed By: #### F ERR #### [facility] [address] [place], [place] [address] Urea nitrogen [Mass/Vol] 15 mg/dL Normal 7-18 [facility] Comment on above: Performed By: #### F ERR #### [facility] [address] [place] [address] Calcium [Mass/Vol] 8.6 mg/dL Normal 8.5-10.1 [facility] Comment on above: Performed By: #### F ERR #### [facility] [address] [place] [address] Glucose [Mass/Vol] 76 mg/dL Normal 70-99 [facility] Comment on above: Performed By: #### F ERR #### [facility] [address] [place] [address] Chloride [Moles/Vol] 108 mmol/L High 98-107 [facility] Comment on above: Performed By: #### F ERR #### [facility] [address] [place] [address] Potassium [Moles/Vol] 4.1 mmol/L Normal 3.5-5.1 [facility] Comment on above: Performed By: #### F ERR #### [facility] [address] [place] [address] Sodium [Moles/Vol] 141 mmol/L Normal 136-145 [facility] Comment on above: Performed By: #### F ERR #### [facility] [address] [place] [address] Hemogram/Diffon 03-02-2019 Abs Immature Grans 0.03 thou/cmm Normal 0.00-0.05 [facility] Comment on above: Performed By: #### F ERR #### [facility] [address] [place] [address] Abs Neut (ANC) 4.35 thou/cmm Normal 1.78-5.38 [facility] Comment on above: Performed By: #### F ERR #### [facility] [address] [place] [address] Abs. Baso 0.02 thou/cmm Normal 0.01-0.08 [facility] Comment on above: Performed By: #### F ERR #### [facility] [address] [place], [place] [address] Abs. Barton 0.70 thou/cmm Normal 0.30-0.82 [facility] Comment on above: Performed By: #### F ERR #### [facility] [address] [place], [place] [address] Basophils/100 WBC (Bld) 0.3 % Normal [facility] Comment on above: Performed By: #### F ERR #### [facility] [address] [place], [place] [address] Eosinophils (Bld) [#/Vol] 0.06 thou/cmm Normal 0.04-0.54 [facility] Comment on above: Performed By: #### F ERR #### [facility] [address] [place] [address] Eosinophils/100 WBC (Bld) 0.9 % Normal [facility] Comment on above: Performed By: #### F ERR #### [place] [address] Erythrocyte distribution width (RBC) [Ratio] 14.2 % Normal 11.6-14.4 [facility] Comment on above: Performed By: #### F ERR #### [place] [address] Hematocrit (Bld) [Volume fraction] 43.4 % Normal 40.1-51.0 [facility] Comment on above: Performed By: #### F ERR #### [place] [address] Hemoglobin (Bld) [Mass/Vol] 14.6 g/dL Normal 13.7-17.5 [facility] Comment on above: Performed By: #### F ERR #### [facility] [address] [place] [address] Immature Grans 0.40 % Normal [facility] Comment on above: Performed By: #### F ERR #### [facility] [address] [place] [address] Lymphocytes (Bld) [#/Vol] 1.76 thou/cmm Normal 0.84-2.85 [facility] Comment on above: Performed By: #### F ERR #### [facility] [address] [place], [place] [address] Lymphocytes/100 WBC (Bld) 25.4 % Normal [facility] Comment on above: Performed By: #### F ERR #### [facility] [address] [place], [place] [address] MCH (RBC) [Entitic mass] 28.5 pg Normal 25.7-32.2 [facility] Comment on above: Performed By: #### F ERR #### [facility] [address] [place], [place] [address] MCHC (RBC) [Mass/Vol] 33.6 % Normal 32.3-36.5 [facility] Comment on above: Performed By: #### F ERR #### [facility] [address] [place] [address] MCV (RBC) [Entitic vol] 84.8 fL Normal 83.2-95.6 [facility] Comment on above: Performed By: #### F ERR #### [facility] [address] [place] [address] Monocytes/100 WBC (Bld) 10.1 % Normal [facility] Comment on above: Performed By: #### F ERR #### [facility] [address] [place] [address] Platelet mean volume (Bld) [Entitic vol] 10.9 fL Normal 8.7-12.0 [facility] Comment on above: Performed By: #### F ERR #### [facility] [address] [place] [address] Platelets (Bld) [#/Vol] 285 thou/cmm Normal 141-365 [facility] Comment on above: Performed By: #### F ERR #### [facility] [address] [place], [place] [address] RBC (Bld) [#/Vol] 5.12 mil/cmm Normal 4.63-6.08 [facility] Comment on above: Performed By: #### F ERR #### [facility] [address] [place] [address] RDW SD 43.4 fl Normal 36.1-45.8 [facility] Comment on above: Performed By: #### F ERR #### [facility] [address] [place], [place] [address] Seg Neutrophil 62.9 % Normal [facility] Comment on above: Performed By: #### F ERR #### [facility] [address] [place] [id number] WBC (Bld) [#/Vol] 6.92 thou/cmm Normal 4.23-9.07 [facility] Comment on above: Performed By: #### F ERR #### [facility] [address] [place] [id number] MDRD GFRon 03-02-2019 GFR/1.73 sq M predicted among non-blacks MDRD (S/P/Bld) [Vol rate/Area] mL/min/{1.73_m2} Normal >60mL/min/1.[address] [facility] Comment on above: Result Comment: If t he patient is , multiply the result by 1.210. Performed By: #### F ERR #### [facility] [address] [id number] Sed Rateon 03-02-2019 Sed Rate 5 mm/hr Normal 0-15 [facility] Comment on above: Performed By: #### F ERR #### [facility] [address] [id number] CNOVon 03-01-2019 CNOV Office Visit (RHBATH ) MARAH ESPINOZA ([id number]) 1970 M [place] Date Time Provider Department 03/01/19 4:15 PM EKATERINA HANNA RHBLISE During your visit today, we recorded the following information about you: Temperature Pulse Blood pressure Weight 98.2 degrees 73/minute 122/78 78 kg Height 1.778 m Ekaterina Hanna MD 03/01/2019 5:20 PM Signed RHEUMATOLOGY PROGRESS NOTEPatient is here for a follow up visit for Patient presents with: Follow Up HPI: Marah Espinoza is a 48 year old male who presents inflammatory arthritis. Feels better. Took prednisone 7-8 days then stopped. Reports significant improvement with methotrexate. Had diarrhea for some days but that improved. Denies any pain. Brief Rheumatological history - He was diagnosed with RA 5 years ago by a science consultant in [place]. He was prescribed Celebrex. He had right knee swelling - aspiration and steroid injection was done. He now has left wrist pain and wrist since 10 days. He denies any triggering events. He took OTC pain medicine SL. He takes Ca-vit D glucosamine. ? Family history of autoimmune disease: father with joint pain. Not formally diagnosed. Siblings have bone and joint pain. Smoking status: Tobacco Use: Never ? Interval Review of Systems CONSTITUTIONAL: Recent Weight change: No Fever: No EYES: Dryness in nose: No Dryness of mouth: No Oral ulcers: No CARDIOVASCULAR: Pain in chest: No RESPIRATORY: Shortness of breath: No Cough: No GASTROINTESTINAL: Nausea: No Vomiting: No Changes in bowel movements: No Jaundice: No Heartburn: No MUSCULOSKELETAL: Per HPI INTEGUMENTARY: Rash: No HEMATOLOGIC/LYMPHATIC: Anemia: No NEUROLOGICAL SYSTEM: Headaches: No Sensitivity or pain of hands and/or feet: No PSYCHIATRIC: Anxiety: No Poor sleep: No History reviewed. No pertinent past medical history. PAST SURGICAL HISTORY Procedure Laterality Date - NONE 12/25/2018 History Review: I have reviewed and modified as needed, the following during this visit: Allergies, Past Medical History, Past Surgical History, Past Family History, Past Social History. BP 122/78 (BP Site: Left Arm, BP Position: Sitting) Pulse 73 Temp 36.8 ?C (98.2 ?F) Ht 177.8 cm (5' 10 ) Wt 78 kg (172 lb) BMI 24.68 kg/m? Physical Exam GENERAL: Well appearing, alert, comfortable, in no acute distress, well-hydrated, well nourished. HEENT: Negative for external ears normal. Canals are clear. Both TMs visualized and are normal. Eye Exam normal. External nose normal, no nasal ulcer or throat ulcer. NECK: NECK Supple, no adenopathy; thyroid symmetric, normal size, no bruits CARDIAC: regular rate and rhythm, No murmur asculated. and Equal peripheral pulses RESPIRATORY: Lungs clear to auscultation. No wheezing, rhonchi, rales VASCULAR: RRR without murmur, gallop, or rubs. No ectopy. NEURO: Motor and sensory exam normal MOTOR: Normal; including tone, gait, stressed gait, power and coordination. SKIN: Negative for alopecia, skin rash, malar rash, skin lesion, skin ulcer, pits, thickening, color changes, telangiectasias, nail changes, nail ridging, nail pitting, onycholysis MUSCULOSKELETAL: DIPS: Normal PIPS: Normal MCPs: Normal Wrists: Normal Elbows: Normal Shoulders: Normal C-Spine: Normal Hips: Normal Knees: Normal Ankles: Normal MTPs / Toes: Normal Arches: Normal Lab Results: Sed Rate, Westergren 8 12/25/2018 CRP 0.77 12/25/2018 Serology: Low ferritin Synovial fluid 1667 PMNs 2019 - Negative rheumatoid factor CCP IHSAN ESR 18 URIC ACID 4.6 Normal vitamin D, TSH, PSA Radiology: IMPRESSION: Minimal degenerative change involving the CMC joints of the first digit, bilaterally. ?No acute findings. ?No bony erosions are Identified. IMPRESSION: Unremarkable single AP weightbearing view of both knees. ?No significant osteoarthritis. IMPRESSION: No acute findings. ?No testicular mass, hyperemia, or evidence for testicular torsion. Incidentally noted are trace bilateral hydroceles. Right-sided varicocele. Approximately 4 mm right epididymal head cyst versus spermatocele. Assessment and Plan (Z79.899) High risk medication use (primary encounter diagnosis) (M06.09) Rheumatoid arthritis of multiple sites with negative rheumatoid factor (HCC) (M19.90) Inflammatory arthritis 48-year-old male is here for follow up for seronegative rheumatoid arthritis. Patient reports similar episode involving right knee several years ago which was aspirated and had steroid injection. He was prescribed Celebrex for rheumatoid arthritis. RF and CCP were negative. 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 High CRP. Synovial fluid showed 16k PMN, due to clot, cell count cannot be assessed accurately. ? No rash, Raynaud's phenomenon, GI issues. He has chronic low back pain which is triggered with prolonged standing. ? Right wrist pain resolved with prednisone and steroid injection. Doing well with methotrexate. Again had a long discussion about the importance of long-term treatment. Can control disease can lead to heart problems and malignancies like lymphomas. Labs today and if normal labs every 3 months. ? If knee pain does not improve then he may need MRI. Office Visit on 03/01/19 - CBC + DIFF - COMP METABOLIC PANEL - C-REACTIVE PROTEIN (CRP) - SED RATE WESTERGREN No orders of the defined types were placed in this encounter. Return in about 3 months (around 06/01/2019) for rheumatoid arthritis. MD Ekaterina Nur MD 03/02/2019 4:21 PM Signed Addended by: EKATERINA HANNA MD on: 03/02/2019 04:21 PM Modules accepted: Orders Referring Provider: SELF [[id number]] Allergies As of Date: 03/01/2019 (No Known Allergies) Date Reviewed: 03/01/2019 Reviewed by: Ekaterina Hanna - Fully Assessed Reason for Visit: Follow Up [171] Primary Visit Diagnosis:High risk medication use [Z79.899] Other Visit Diagnoses:Rheumatoid arthritis of multiple sites with negative rheumatoid factor (HCC) [M06.09] Inflammatory arthritis [M19.90] Order(s):CBC + DIFF [SQCBCDIF] Order #: [id number] FUTURE COMP METABOLIC PANEL [SQCMP] Order #: [id number] FUTURE C-REACTIVE PROTEIN (CRP) [SQCRP] Order #: [id number] FUTURE SED RATE WESTERGREN [SQWSR] Order #: [id number] FUTURE [START ON 03/03/2019] methotrexate 2.5 mg tabletTake 6 tablets by mouth every Tuesday.Disp: 24 tabletRfl: 2 folic acid 1 mg tabletTake 1 tablet by mouth once daily.Disp: 90 tabletRfl: 1 Prescriptions as of 03/01/2019 Sig: METHOTREXATE SODIUM 2.5 MG TA* Take 6 tablets by mouth every* FOLIC ACID 1 MG TABLET Take 1 tablet by mouth once d* Problem List As Of Date 03/01/2019 Noted Resolved Inflammatory arthritis [M19.90] INVALID FOR* Pain in left wrist [M25.532] INVALID FOR* Rheumatoid arthritis of multiple sites with neg*INVALID FOR* High risk medication use [Z79.899] INVALID FOR* Prescriptions ordered this encounter Disp Refills Start End METHOTREXATE SODIUM 2.5 MG TABLET 24 t* 2 03/03/2019 Route: ORAL Sig: Take 6 tablets by mouth every Tuesday. FOLIC ACID 1 MG TABLET 90 t* 1 03/02/2019 Route: ORAL Sig: Take 1 tablet by mouth once daily. Medications Discontinued During This Encounter predniSONE (DELTASONE) 10 mg tablet 14 t* 0 12/25/2018 03/02/2019 Route: ORAL Sig: Take 1 tablet by mouth once daily. Patient not taking: Reported on 01/18/2019 Disc: Course of therapy completed methotrexate 2.5 mg tablet 24 t* 1 01/20/2019 03/02/2019 Route: ORAL Sig: Take 6 tablets (15 mg) by mouth every Tuesday. Disc: Reason for discontinue is not on file. folic acid 1 mg tablet 30 t* 1 01/18/2019 03/02/2019 Route: ORAL Sig: Take 1 tablet by mouth once daily. Disc: Reason for discontinue is not on file. Disposition: Return in about 3 months (around 06/01/2019) for rheumatoid arthritis. Follow-up and Disposition History Recorded Questionnaire: JILLIAN HOLLIS YEARLY ADL ASSESSMENT Toileting -> Independent Bathing -> Independent Upper Body Dressing -> Independent Lower Body Dressing -> Independent Grooming/Hygiene -> Independent Self Feeding -> Independent Home Management (laundry/cleaning/chor es/simple meal prep) -> Independent Encounter Status:Closed by EKATERIAN HANNA MD on 03/01/19 [facility] PROGRESSon 03-01-2019 PROGRESS HNO ID: [id number] Author: Ekaterina Hanna Service: ? Author Type: Physician Type: Progress Notes Filed: 03/01/2019 5:20 PM Note Text: RHEUMATOLOGY PROGRESS NOTEPatient is here for a follow up visit for Patient presents with: Follow Up HPI: Marah Espinoza is a 48 year old male who presents inflammatory arthritis. Feels better. Took prednisone 7-8 days then stopped. Reports significant improvement with methotrexate. Had diarrhea for some days but that improved. Denies any pain. Brief Rheumatological history - He was diagnosed with RA 5 years ago by a science consultant in [place]. He was prescribed Celebrex. He had right knee swelling - aspiration and steroid injection was done. He now has left wrist pain and wrist since 10 days. He denies any triggering events. He took OTC pain medicine SL. He takes Ca-vit D glucosamine. ? Family history of autoimmune disease: father with joint pain. Not formally diagnosed. Siblings have bone and joint pain. Smoking status: Tobacco Use: Never ? Interval Review of Systems CONSTITUTIONAL: Recent Weight change: No Fever: No EYES: Dryness in nose: No Dryness of mouth: No Oral ulcers: No CARDIOVASCULAR: Pain in chest: No RESPIRATORY: Shortness of breath: No Cough: No GASTROINTESTINAL: Nausea: No Vomiting: No Changes in bowel movements: No Jaundice: No Heartburn: No MUSCULOSKELETAL: Per HPI INTEGUMENTARY: Rash: No HEMATOLOGIC/LYMPHATIC: Anemia: No NEUROLOGICAL SYSTEM: Headaches: No Sensitivity or pain of hands and/or feet: No PSYCHIATRIC: Anxiety: No Poor sleep: No History reviewed. No pertinent past medical history. PAST SURGICAL HISTORY Procedure Laterality Date - NONE 12/25/2018 History Review: I have reviewed and modified as needed, the following during this visit: Allergies, Past Medical History, Past Surgical History, Past Family History, Past Social History. BP 122/78 (BP Site: Left Arm, BP Position: Sitting) Pulse 73 Temp 36.8 ?C (98.2 ?F) Ht 177.8 cm (5' 10 ) Wt 78 kg (172 lb) BMI 24.68 kg/m? Physical Exam GENERAL: Well appearing, alert, comfortable, in no acute distress, well-hydrated, well nourished. HEENT: Negative for external ears normal. Canals are clear. Both TMs visualized and are normal. Eye Exam normal. External nose normal, no nasal ulcer or throat ulcer. NECK: NECK Supple, no adenopathy; thyroid symmetric, normal size, no bruits CARDIAC: regular rate and rhythm, No murmur asculated. and Equal peripheral pulses RESPIRATORY: Lungs clear to auscultation. No wheezing, rhonchi, rales VASCULAR: RRR without murmur, gallop, or rubs. No ectopy. NEURO: Motor and sensory exam normal MOTOR: Normal; including tone, gait, stressed gait, power and coordination. SKIN: Negative for alopecia, skin rash, malar rash, skin lesion, skin ulcer, pits, thickening, color changes, telangiectasias, nail changes, nail ridging, nail pitting, onycholysis MUSCULOSKELETAL: DIPS: Normal PIPS: Normal MCPs: Normal Wrists: Normal Elbows: Normal Shoulders: Normal C-Spine: Normal Hips: Normal Knees: Normal Ankles: Normal MTPs / Toes: Normal Arches: Normal Lab Results: Sed Rate, Westergren 8 12/25/2018 CRP 0.77 12/25/2018 Serology: Low ferritin Synovial fluid 1667 PMNs 2019 - Negative rheumatoid factor CCP IHSAN ESR 18 URIC ACID 4.6 Normal vitamin D, TSH, PSA Radiology: IMPRESSION: Minimal degenerative change involving the CMC joints of the first digit, bilaterally. ?No acute findings. ?No bony erosions are Identified. IMPRESSION: Unremarkable single AP weightbearing view of both knees. ?No significant osteoarthritis. IMPRESSION: No acute findings. ?No testicular mass, hyperemia, or evidence for testicular torsion. Incidentally noted are trace bilateral hydroceles. Right-sided varicocele. Approximately 4 mm right epididymal head cyst versus spermatocele. Assessment and Plan (Z79.899) High risk medication use (primary encounter diagnosis) (M06.09) Rheumatoid arthritis of multiple sites with negative rheumatoid factor (HCC) (M19.90) Inflammatory arthritis 48-year-old male is here for follow up for seronegative rheumatoid arthritis. Patient reports similar episode involving right knee several years ago which was aspirated and had steroid injection. He was prescribed Celebrex for rheumatoid arthritis. RF and CCP were negative. 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 High CRP. Synovial fluid showed 16k PMN, due to clot, cell count cannot be assessed accurately. ? No rash, Raynaud's phenomenon, GI issues. He has chronic low back pain which is triggered with prolonged standing. ? Right wrist pain resolved with prednisone and steroid injection. Doing well with methotrexate. Again had a long discussion about the importance of long-term treatment. Can control disease can lead to heart problems and malignancies like lymphomas. Labs today and if normal labs every 3 months. ? If knee pain does not improve then he may need MRI. Office Visit on 03/01/19 - CBC + DIFF - COMP METABOLIC PANEL - C-REACTIVE PROTEIN (CRP) - SED RATE WESTERGREN No orders of the defined types were placed in this encounter. Return in about 3 months (around 06/01/2019) for rheumatoid arthritis. Ekaterina Hanna MD [facility] CNCOon 02-19-2019 CNCO Letter Text [facility] CNOVon 01-18-2019 CNOV Office Visit (RHBATH ) MARAH ESPINOZA ([id number]) 1970 M ANA M Date Time Provider Department 01/18/19 4:15 PM EKATERINA HANNA During your visit today, we recorded the following information about you: Pulse Blood pressure Weight Height 99/minute 130/88 69.9 kg 1.778 m Ekaterina Hanna MD 01/18/2019 5:33 PM Signed RHEUMATOLOGY PROGRESS NOTEPatient is here for a follow up visit for Patient presents with: Results: discuss labs from 12/25/2018. HPI: Marah Espinoza is a 48 year old male who presents inflammatory arthritis. Feels better. Took prednisone 7-8 days then stopped. He reports pain in shoulders which chronic. Wrist pain is better, resolved. History taken via weight shifter. Brief Rheumatological history - He was diagnosed with RA 5 years ago by a science consultant in [place]. He was prescribed Celebrex. He had right knee swelling - aspiration and steroid injection was done. He now has left wrist pain and wrist since 10 days. He denies any triggering events. He took OTC pain medicine SL. He takes Ca-vit D glucosamine. ? Family history of autoimmune disease: father with joint pain. Not formally diagnosed. Siblings have bone and joint pain. Smoking status: Tobacco Use: Never ? Interval Review of Systems CONSTITUTIONAL: Recent Weight change: No Fever: No EYES: Dryness in nose: No Dryness of mouth: No Oral ulcers: No CARDIOVASCULAR: Pain in chest: No RESPIRATORY: Shortness of breath: No Cough: No GASTROINTESTINAL: Nausea: No Vomiting: No Changes in bowel movements: No Jaundice: No Heartburn: No MUSCULOSKELETAL: Per HPI INTEGUMENTARY: Rash: No HEMATOLOGIC/LYMPHATIC: Anemia: No NEUROLOGICAL SYSTEM: Headaches: No Sensitivity or pain of hands and/or feet: No PSYCHIATRIC: Anxiety: No Poor sleep: No History reviewed. No pertinent past medical history. PAST SURGICAL HISTORY Procedure Laterality Date - NONE 12/25/2018 History Review: I have reviewed and modified as needed, the following during this visit: Allergies, Past Medical History, Past Surgical History, Past Family History, Past Social History. BP 130/88 Pulse 99 Ht 177.8 cm (5' 10 ) Wt 69.9 kg (154 lb) SpO2 98% BMI 22.10 kg/m? Physical Exam GENERAL: Well appearing, alert, comfortable, in no acute distress, well-hydrated, well nourished. HEENT: Negative for external ears normal. Canals are clear. Both TMs visualized and are normal. Eye Exam normal. External nose normal, no nasal ulcer or throat ulcer. NECK: NECK Supple, no adenopathy; thyroid symmetric, normal size, no bruits CARDIAC: regular rate and rhythm, No murmur asculated. and Equal peripheral pulses RESPIRATORY: Lungs clear to auscultation. No wheezing, rhonchi, rales VASCULAR: RRR without murmur, gallop, or rubs. No ectopy. NEURO: Motor and sensory exam normal MOTOR: Normal; including tone, gait, stressed gait, power and coordination. SKIN: Negative for alopecia, skin rash, malar rash, skin lesion, skin ulcer, pits, thickening, color changes, telangiectasias, nail changes, nail ridging, nail pitting, onycholysis MUSCULOSKELETAL: DIPS: Normal PIPS: Normal MCPs: Normal Wrists: Normal Elbows: Normal Shoulders: Normal C-Spine: Normal Hips: Normal Knees: Normal Ankles: Normal MTPs / Toes: Normal Arches: Normal Lab Results: Sed Rate, Westergren 8 12/25/2018 CRP 0.77 12/25/2018 Serology: Low ferritin Synovial fluid 1667 PMNs 2019 - Negative rheumatoid factor CCP IHSAN ESR 18 URIC ACID 4.6 Normal vitamin D, TSH, PSA Radiology: IMPRESSION: Minimal degenerative change involving the CMC joints of the first digit, bilaterally. ?No acute findings. ?No bony erosions are Identified. IMPRESSION: Unremarkable single AP weightbearing view of both knees. ?No significant osteoarthritis. IMPRESSION: No acute findings. ?No testicular mass, hyperemia, or evidence for testicular torsion. Incidentally noted are trace bilateral hydroceles. Right-sided varicocele. Approximately 4 mm right epididymal head cyst versus spermatocele. Assessment and Plan (M19.90) Inflammatory arthritis (primary encounter diagnosis) (M06.09) Rheumatoid arthritis of multiple sites with negative rheumatoid factor (HCC) (Z79.899) High risk medication use 48-year-old male is here for follow up for left wrist pain. Patient reports similar episode involving right knee several years ago which was aspirated and had steroid injection. He was prescribed Celebrex for rheumatoid arthritis. RF and CCP were negative. 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 High CRP. Synovial fluid showed 16k PMN, due to clot, cell count cannot be assessed accurately. ? No rash, Raynaud's phenomenon, GI issues. He has chronic low back pain which is triggered with prolonged standing. ? Right wrist pain resolved with prednisone and steroid injection. We discussed the risks and benefits of MTX. ? No orders found for this visit on 01/18/19. Medication orders placed this encounter folic acid 1 mg tablet Sig: Take 1 tablet by mouth once daily. Dispense: 30 tablet Refill: 1 methotrexate 2.5 mg tablet Sig: Take 6 tablets (15 mg) by mouth every Tuesday. Dispense: 24 tablet Refill: 1 Return in about 1 month (around 02/15/2019) for rheumatoid arthritis. Ekaterina Hanna MD Referring Provider: EKATERINA HANNA [[id number]] Allergies As of Date: 01/18/2019 (No Known Allergies) Date Reviewed: 01/18/2019 Reviewed by: Ekaterina Hanna - Fully Assessed Reason for Visit: Results [95] Cmt: discuss labs from 12/25/2018. Primary Visit Diagnosis:Inflammatory arthritis [M19.90] Other Visit Diagnoses:Rheumatoid arthritis of multiple sites with negative rheumatoid factor (HCC) [M06.09] High risk medication use [Z79.899] Order(s):[START ON 01/20/2019] methotrexate 2.5 mg tabletTake 6 tablets (15 mg) by mouth every Tuesday.Disp: 24 tabletRfl: 1 folic acid 1 mg tabletTake 1 tablet by mouth once daily.Disp: 30 tabletRfl: 1 Prescriptions as of 01/18/2019 Sig: METHOTREXATE SODIUM 2.5 MG TA* Take 6 tablets (15 mg) by lit* FOLIC ACID 1 MG TABLET Take 1 tablet by mouth once d* PREDNISONE 10 MG TABLET Take 1 tablet by mouth once d* Patient not taking: Reported on 01/18/2019 Problem List As Of Date 01/18/2019 Noted Resolved Inflammatory arthritis [M19.90] INVALID FOR* Primary osteoarthritis involving multiple joint*INVALID FOR* Pain in left wrist [M25.532] INVALID FOR* Rheumatoid arthritis of multiple sites with neg*INVALID FOR* High risk medication use [Z79.899] INVALID FOR* Prescriptions ordered this encounter Disp Refills Start End METHOTREXATE SODIUM 2.5 MG TABLET 24 t* 1 01/20/2019 Route: ORAL Sig: Take 6 tablets (15 mg) by mouth every Tuesday. FOLIC ACID 1 MG TABLET 30 t* 1 01/18/2019 Route: ORAL Sig: Take 1 tablet by mouth once daily. Disposition: Return in about 1 month (around 02/15/2019) for rheumatoid arthritis. Follow-up and Disposition History Recorded Questionnaire: JILLIAN HOLLIS YEARLY ADL ASSESSMENT Toileting -> Independent Bathing -> Independent Upper Body Dressing -> Independent Lower Body Dressing -> Independent Grooming/Hygiene -> Independent Self Feeding -> Independent Home Management (laundry/cleaning/chor es/simple meal prep) -> Independent Encounter Status:Closed by EKATERINA HANNA MD on 01/18/19 [facility] PROGRESSon 01-18-2019 PROGRESS HNO ID: [id number] Author: Ekaterina Hanna Service: ? Author Type: Physician Type: Progress Notes Filed: 01/18/2019 5:33 PM Note Text: RHEUMATOLOGY PROGRESS NOTEPatient is here for a follow up visit for Patient presents with: Results: discuss labs from 12/25/2018. HPI: Marah Espinoza is a 48 year old male who presents inflammatory arthritis. Feels better. Took prednisone 7-8 days then stopped. He reports pain in shoulders which chronic. Wrist pain is better, resolved. History taken via weight shifter. Brief Rheumatological history - He was diagnosed with RA 5 years ago by a science consultant in [place]. He was prescribed Celebrex. He had right knee swelling - aspiration and steroid injection was done. He now has left wrist pain and wrist since 10 days. He denies any triggering events. He took OTC pain medicine SL. He takes Ca-vit D glucosamine. ? Family history of autoimmune disease: father with joint pain. Not formally diagnosed. Siblings have bone and joint pain. Smoking status: Tobacco Use: Never ? Interval Review of Systems CONSTITUTIONAL: Recent Weight change: No Fever: No EYES: Dryness in nose: No Dryness of mouth: No Oral ulcers: No CARDIOVASCULAR: Pain in chest: No RESPIRATORY: Shortness of breath: No Cough: No GASTROINTESTINAL: Nausea: No Vomiting: No Changes in bowel movements: No Jaundice: No Heartburn: No MUSCULOSKELETAL: Per HPI INTEGUMENTARY: Rash: No HEMATOLOGIC/LYMPHATIC: Anemia: No NEUROLOGICAL SYSTEM: Headaches: No Sensitivity or pain of hands and/or feet: No PSYCHIATRIC: Anxiety: No Poor sleep: No History reviewed. No pertinent past medical history. PAST SURGICAL HISTORY Procedure Laterality Date - NONE 12/25/2018 History Review: I have reviewed and modified as needed, the following during this visit: Allergies, Past Medical History, Past Surgical History, Past Family History, Past Social History. BP 130/88 Pulse 99 Ht 177.8 cm (5' 10 ) Wt 69.9 kg (154 lb) SpO2 98% BMI 22.10 kg/m? Physical Exam GENERAL: Well appearing, alert, comfortable, in no acute distress, well-hydrated, well nourished. HEENT: Negative for external ears normal. Canals are clear. Both TMs visualized and are normal. Eye Exam normal. External nose normal, no nasal ulcer or throat ulcer. NECK: NECK Supple, no adenopathy; thyroid symmetric, normal size, no bruits CARDIAC: regular rate and rhythm, No murmur asculated. and Equal peripheral pulses RESPIRATORY: Lungs clear to auscultation. No wheezing, rhonchi, rales VASCULAR: RRR without murmur, gallop, or rubs. No ectopy. NEURO: Motor and sensory exam normal MOTOR: Normal; including tone, gait, stressed gait, power and coordination. SKIN: Negative for alopecia, skin rash, malar rash, skin lesion, skin ulcer, pits, thickening, color changes, telangiectasias, nail changes, nail ridging, nail pitting, onycholysis MUSCULOSKELETAL: DIPS: Normal PIPS: Normal MCPs: Normal Wrists: Normal Elbows: Normal Shoulders: Normal C-Spine: Normal Hips: Normal Knees: Normal Ankles: Normal MTPs / Toes: Normal Arches: Normal Lab Results: Sed Rate, Temoergren 8 12/25/2018 CRP 0.77 12/25/2018 Serology: Low ferritin Synovial fluid 1667 PMNs 2019 - Negative rheumatoid factor CCP IHSAN ESR 18 URIC ACID 4.6 Normal vitamin D, TSH, PSA Radiology: IMPRESSION: Minimal degenerative change involving the CMC joints of the first digit, bilaterally. ?No acute findings. ?No bony erosions are Identified. IMPRESSION: Unremarkable single AP weightbearing view of both knees. ?No significant osteoarthritis. IMPRESSION: No acute findings. ?No testicular mass, hyperemia, or evidence for testicular torsion. Incidentally noted are trace bilateral hydroceles. Right-sided varicocele. Approximately 4 mm right epididymal head cyst versus spermatocele. Assessment and Plan (M19.90) Inflammatory arthritis (primary encounter diagnosis) (M06.09) Rheumatoid arthritis of multiple sites with negative rheumatoid factor (HCC) (Z79.899) High risk medication use 48-year-old male is here for follow up for left wrist pain. Patient reports similar episode involving right knee several years ago which was aspirated and had steroid injection. He was prescribed Celebrex for rheumatoid arthritis. RF and CCP were negative. 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 High CRP. Synovial fluid showed 16k PMN, due to clot, cell count cannot be assessed accurately. ? No rash, Raynaud's phenomenon, GI issues. He has chronic low back pain which is triggered with prolonged standing. ? Right wrist pain resolved with prednisone and steroid injection. We discussed the risks and benefits of MTX. ? No orders found for this visit on 01/18/19. Medication orders placed this encounter folic acid 1 mg tablet Sig: Take 1 tablet by mouth once daily. Dispense: 30 tablet Refill: 1 methotrexate 2.5 mg tablet Sig: Take 6 tablets (15 mg) by mouth every Tuesday. Dispense: 24 tablet Refill: 1 Return in about 1 month (around 02/15/2019) for rheumatoid arthritis. Ekaterina Hanna MD [facility] CNPRosenda 01-01-2019 CNPN Telephone (AKURFL) TARALELIAMARAH Burgos ([id number]) 1970 M ANA M Date Time Provider Department 01/01/19 HANNA NAQVI During your visit today, we recorded the following information about you: Vanessa Goss CMA 01/01/2019 9:57 AM Signed ----- Message from Hanna Naqvi sent at 12/30/2018 10:45 PM EST ----- Essentially negative Recommend F/U with [facility] for further review. Can cancel appt with id Vanessa Goss CMA 01/01/2019 9:58 AM Signed Called left message for return call from patient for results. Vanessa Corea CMA 01/02/2019 2:27 PM Signed Pt notified Jose Corea CMA Allergies As of Date: 01/01/2019 (No Known Allergies) Date Reviewed: 12/25/2018 Reviewed by: Leigh Ann Rodriguez - Fully Assessed Reason for Visit: Results [95] Prescriptions as of 01/01/2019 Sig: PREDNISONE 10 MG TABLET Take 1 tablet by mouth once d* Problem List As Of Date 01/01/2019 Noted Resolved Inflammatory arthritis [M19.90] INVALID FOR* Primary osteoarthritis involving multiple joint*INVALID FOR* Pain in left wrist [M25.532] INVALID FOR* Encounter Status:Closed by VANESSA GOSS CMA on 01/01/19 [facility] Hep B Core Ab,Totalon 2018 Hep B Core Ab,Total SEE BELOW [facility] Comment on above: Result Comment: Hep B Core Ab,Total Negative NEGAT Performing Laboratory: [facility] [address] [place] [address] Performed By: #### H BCTX #### [place] [address] Quantiferon (Rapd TB)on Quantiferon (Rapd TB) SEE BELOW Normal [facility] Comment on above: Result Comment: TB N IL 0.08 IU/mL TB1 Ag minus Nil 0.01 <0.35 IU/mL TB2 Ag minus Nil 0.00 <0.35 IU/mL Mitogen minus Nil 7.50 TB Result Negative NEGAT Interpretation SEE BELOW No evidence of current or previous infection with Mycobacterium tuberculosis. Performing Laboratory: [facility] [address] [place] [address] Performed By: #### F ERR #### [place] [address] BF Cell Count/Diffon 019 BF/Monos 57 % Normal [facility] Comment on above: Performed By: #### B FCD #### [place] [address] BF/Others 3 % Normal [facility] Comment on above: Performed By: #### B FCD #### [place] [address] BF/Segs 2 % Normal [facility] Comment on above: Performed By: #### B FCD #### [place] [address] Lymphocytes/100 WBC (Bld) 38 % Normal [facility] Comment on above: Performed By: #### B FCD #### [place] [address] Appearance (U) Bloody Normal [facility] Comment on above: Result Comment: Ther e is a Clot in the fluid-cell count may not be accurate Performed By: #### B FCD #### [place] [address] BF/Nucleated Cells 1667 /cmm Normal [address] [facility] Comment on above: Performed By: #### B FCD #### [place] [address] Body Fluid Color Red Normal [facility] Comment on above: Performed By: #### B FCD #### [place] [address] Specimen type Nom (Spec) Synovial/Joint Normal [facility] Comment on above: Performed By: #### B FCD #### [facility] [address] [place] [address] Crystals Synovial Flon 12-26 CA Pyropho.Int and Ext None Normal NONE [facility] Comment on above: Performed By: #### C RYST #### [place] [address] UA Intra and Extra None Normal NONE [facility] Comment on above: Performed By: #### C RYST #### [place] [address] Hep. B Surface Abon 12-27-19 19 Hep. B Surface Ab 3.2 mIU/mL Normal [facility] Comment on above: Result Comment: Hep B. Antibody < 10.0 mIU/mL is negative. Hep B. Antibody > or = 10.0 mIU/mL is positive. Performed By: #### A NTB #### [place] [address] Hep. B Surface Agon 12-27-19 19 Hep.B Surface Ag Negative Normal Negative [facility] Comment on above: Performed By: #### H BSAG #### [place] [address] Hepatitis C Antibodyon 12-26 Hepatitis C Ab Negative Normal Negative [facility] Comment on above: Performed By: #### H CVAB #### [place] [address] CNOVon 12-25-2018 CNOV Office Visit (RHBATH ) MARAH ESPINOZA ([id number]) 1970 M BANNER Date Time Provider Department 12/25/18 2:30 PM EKATERINA HANNA During your visit today, we recorded the following information about you: Pulse Blood pressure Weight Height 79/minute 126/86 69.9 kg 1.778 m Ekaterina Hanna MD 12/25/2018 3:18 PM Signed RHEUMATOLOGY NEW PATIENT NOTE REFERRING PHYSICIAN: Self CHIEF COMPLAINT: Patient presents with: Joint Pain: Left arm swelling x 10 days. HPI: Marah Espinoza is a 48 year old male who presents with joint pain. He was diagnosed with RA 5 years ago by a science consultant in [place]. He was prescribed Celebrex. He had right knee swelling - aspiration and steroid injection was done. He now has left wrist pain and wrist since 10 days. He denies any triggering events. He took OTC pain medicine SL. He takes Ca-vit D glucosamine. Family history of autoimmune disease: father with joint pain. Not formally diagnosed. Siblings have bone and joint pain. Smoking status: Tobacco Use: Never Rheumatology REVIEW OF SYSTEMS: Constitutional: Recent Weight Change: No Fatigue: No Fever: No Night sweats: No Heent: Alopecia: No H/o Inflammatory eye disease (iritis/scleritis): No Hearing loss: No Frequent sinusitis: No Oral ulcers: YES Sicca: No Parotid swelling: No Hoarseness: No Dysphagia: No Heme/lymph: Lymphadenopathy: No Hematological abnormalities (anemia, thrombocytopenia, leukopenia): No Abnormal bleeding: No Skin: Malar or discoid lesions: No Photosensitivity: No Other rashes: No Raynaud's phenomenon: No Hives: No Tightness: No Nodules/bumps: No Easy Bruising: No Nail changes: No H/o psoriasis: No Gastroenterology: Nausea: {No Vomiting: No Change in bowel movements: No Heartburn: YES Respiratory: Dry cough/SOB: No Cardiovascular: Pain in chest: No Musculoskeletal: Per HPI Joint pain or swelling: No Prolonged morning stiffness: No Back pain or neck pain: No Muscle weakness: No Genitourinary: Vaginal dryness: No Rash/ulcers: No Neurological: Headaches: No Sensitivity or pain of hands and/or feet: No Psychiatry: Anxiety: No Depression: No Poor sleep: No H/o loss: No H/o thrombosis: No Increased susceptibility to infection: No No past medical history on file. PAST SURGICAL HISTORY Procedure Laterality Date - NONE 12/25/2018 Current Outpatient Medications: predniSONE (DELTASONE) 10 mg tablet Take 1 tablet by mouth once daily. No current facility-administered medications for this visit. ALLERGIES No Known Allergies No family history on file. Social History Socioeconomic History Marital status: Spouse name: Not on file Number of children: Not on file Years of education: Not on file Highest education level: Not on file Social Needs Financial resource strain: Not on file Food insecurity - worry: Not on file Food insecurity - inability: Not on file Transportation needs - medical: Not on file Transportation needs - non-medical: Not on file Occupational History Not on file Tobacco Use Smoking status: Never Smoker Smokeless tobacco: Never Used Substance and Sexual Activity Alcohol use: No Drug use: No Sexual activity: Yes Partners: Female Other Topics Concerns: Not on file Social History Narrative Not on file Occupation: Employer And Job Title: None on file Years Of Education Completed: Not specified Marital Status: History Review: I have reviewed and modified as needed, the following during this visit: Allergies, Past Medical History, Past Surgical History, Past Family History, Past Social History. BP 126/86 Pulse 79 Ht 177.8 cm (5' 10 ) Wt 69.9 kg (154 lb) SpO2 98% BMI 22.10 kg/m? Physical Exam GENERAL: Well appearing, alert, comfortable, in no acute distress, well-hydrated, well nourished. HEENT: Negative for external ears normal. Canals are clear. Both TMs visualized and are normal. Eye Exam normal. External nose normal, no nasal ulcer or throat ulcer. NECK: NECK Supple, no adenopathy; thyroid symmetric, normal size, no bruits CARDIAC: regular rate and rhythm, No murmur asculated. and Equal peripheral pulses RESPIRATORY: Lungs clear to auscultation. No wheezing, rhonchi, rales VASCULAR: RRR without murmur, gallop, or rubs. No ectopy. ABDOMEN: Soft, non tender. BS active. No masses or organomegaly. LYMPHATIC: Negative for adenopathy in the neck, axillae, groin, supraclavicular and auricular. NEURO: Motor and sensory exam normal MOTOR: Normal; including tone, gait, stressed gait, power and coordination. SKIN: Negative for alopecia, skin rash, malar rash, skin lesion, skin ulcer, pits, thickening, color changes, telangiectasias, nail changes, nail ridging, nail pitting, onycholysis MUSCULOSKELETAL: DIPS: Normal PIPS: Normal MCPs: Normal Wrists: Abnormal, left wrist synovitis, pitting edema over dorsum of left hand. Elbows: Normal Shoulders: Normal C-Spine: Normal Hips: Normal Knees: Normal Ankles: Normal MTPs / Toes: Normal Arches: Normal Summary of old labs/radiology: Review/request of outside labs and imaging: yes Pertinent labs: No results found for this basename: gluc, K, NA, CHLOR, CO2, CREAT, BUN, ANION, CA, TPROT, ALB, TBILI, ALKPHOS, AST,ALT,WBC,HB,PLT,wsr ,crp Serology: 2019 - Negative rheumatoid factor CCP IHSAN ESR 18 URIC ACID 4.6 Normal vitamin D, TSH, PSA Pertinent imaging: Assessment and Plan (M19.90) Inflammatory arthritis (primary encounter diagnosis) (M15.0) Primary osteoarthritis involving multiple joints (M25.532) Pain in left wrist 48-year-old male is here for evaluation and management recommendations for left wrist pain. Patient reports similar episode involving right knee several years ago which was aspirated and had steroid injection. He was prescribed Celebrex for rheumatoid arthritis. RF and CCP were negative. 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 No rash, Raynaud's phenomena and, GI issues. He has chronic low back pain which is triggered with prolonged standing. Joint aspiration and injection as below. Short course of prednisone for inflammatory arthritis. Labs as below in anticipation of starting disease modifying agent likely methotrexate. PROCEDURE NOTE: Aspiration / Injection of Joint Site(s): wrist Bursa / Tendon / Soft Tissue Site(s): wrist Side(s): Left Performed by: Ekaterina Hanna MD Assisted by: N/A Verification of the identity of the patient was obtained by 2 means: Consent: The risks, benefits, alternatives and personnel present with regards to the procedure were next discussed with the patient. The site was marked as appropriate. An audible time-out was performed and documented here. Time: 3:05 PM Antiseptic preparation: betadine and alcohol Local Anesthesia: Injectable 1% lidocaine: 2 cc Medication Injected: Kendallalog 20 mg Fluid amount: 2ml Fluid nature/color: bloody Synovial fluid crystals analysis results: pending Reference range: Negative / None seen Complications: None. Patient left in satisfactory condition. Verbal instructions given. Ekaterina Hanna MD Office Visit on 12/25/18 - ASP/INJ INTERMED JOINT - XR HAND GENERAL 3V PA/LAT/OBL LT - XR HAND GENERAL 3V PA/LAT/OBL RT - XR FOOT GENERAL 3V AP/LAT/OBL LT - XR FOOT GENERAL 3V AP/LAT/OBL RT - XR KNEE SURVEY ARTHRITIS 1V AP BILAT - XR LUMBAR LIMITED 2V AP/LAT - XR SACROILIAC JOINTS 2V AP PELVIS/FERGUESON - HEP B SURF AG SCRN - HEP B SURF AB QUANT - HEP C AB IA BLOOD - HEP B CORE AB TOTAL - BLOOD TB SCREEN, INCUBATED - C-REACTIVE PROTEIN (CRP) - SED RATE WESTERGREN - FERRITIN BLD - CELL COUNT + DIFF BFL - SYNOVIAL FL,CRYSTAL ID/STAFF REV - BODY FLUID CULTURE AND GRAM STAIN Medication orders placed this encounter predniSONE (DELTASONE) 10 mg tablet Sig: Take 1 tablet by mouth once daily. Dispense: 14 tablet Refill: 0 Return in about 3 weeks (around 01/15/2019) for discuss lab results. MD Ekaterina Nur MD 12/25/2018 3:18 PM Signed PROCEDURE NOTE: Aspiration / Injection of Joint Site(s): wrist Bursa / Tendon / Soft Tissue Site(s): wrist Side(s): Left Performed by: Ekaterina Hanna MD Assisted by: N/A Verification of the identity of the patient was obtained by 2 means: Consent: The risks, benefits, alternatives and personnel present with regards to the procedure were next discussed with the patient. The site was marked as appropriate. An audible time-out was performed and documented here. Time: 3:05 PM Antiseptic preparation: betadine and alcohol Local Anesthesia: Injectable 1% lidocaine: 2 cc Medication Injected: Kenalog 20 mg Fluid amount: 2ml Fluid nature/color: bloody Synovial fluid crystals analysis results: pending Reference range: Negative / None seen Complications: None. Patient left in satisfactory condition. Verbal instructions given. MD Leigh Ann Nur [facility] 12/25/2018 3:13 PM Signed Marah Espinoza is here for an injection of Kenalog 40 mg Patient verified by name and date of . Allergies reviewed and updated: Yes Medication Details: Dose: 0.50ml Route: Intra-Articular Site: Left Wrist Shipping Coordinator: [employer] NDC: 9910-5303-70 Lot #: [id number] Expiration Date: 02/2020 Dr. Hanna present in clinic at time of injection. Patient tolerated well. Leigh Ann Rodriguez CMA Referring Provider: SELF [200] Allergies As of Date: 12/25/2018 (No Known Allergies) Date Reviewed: 12/25/2018 Reviewed by: Leigh Ann ([employer]) Michael - Fully Assessed Reason for Visit: Joint Pain [238] Cmt: Left arm swelling x 10 days. Reason For Visit History Recorded Primary Visit Diagnosis:Inflammatory arthritis [M19.90] Other Visit Diagnoses:Primary osteoarthritis involving multiple joints [M15.0] Pain in left wrist [M25.532] Order(s):predniSONE (DELTASONE) 10 mg tabletTake 1 tablet by mouth once daily.Disp: 14 tabletRfl: 0 ASP/INJ INTERMED JOINT [] Order #: [id number] HEP B SURF AG SCRN [SQHBSAG] Order #: [id number] FUTURE HEP B SURF AB QUANT [SQAHBSQ] Order #: [id number] FUTURE HEP C AB IA BLOOD [SQAHCV] Order #: [id number] FUTURE HEP B CORE AB TOTAL [SQAHBCOT] Order #: [id number] FUTURE BLOOD TB SCREEN, INCUBATED [SQINTPGP] Order #: [id number] FUTURE C-REACTIVE PROTEIN (CRP) [SQCRP] Order #: [id number] FUTURE SED RATE WESTERGREN [SQWSR] Order #: [id number] FUTURE FERRITIN BLD [SQFERR] Order #: [id number] FUTURE XR HAND GENERAL 3V PA/LAT/OBL LT [[id number]] Order #: [id number] FUTURE XR HAND GENERAL 3V PA/LAT/OBL RT [[id number]] Order #: [id number] FUTURE XR FOOT GENERAL 3V AP/LAT/OBL LT [1291400] Order #: [id number] FUTURE XR FOOT GENERAL 3V AP/LAT/OBL RT [1033780] Order #: [id number] FUTURE XR KNEE SURVEY ARTHRITIS 1V AP BILAT [[id number]] Order #: [id number] FUTURE XR LUMBAR LIMITED 2V AP/LAT [[id number]] Order #: [id number] FUTURE XR SACROILIAC JOINTS 2V AP PELVIS/FERGUESON [7467501] Order #: [id number] FUTURE [] triamcinolone acetonide 20 mg injection (KENALOG 40)Disp: Rfl: [] lidocaine 10 mg/mL (1 %) 20 mg injection (XYLOCAINE)Disp: Rfl: BODY FLUID CULTURE AND GRAM STAIN [SQBFCUL] Order #: [id number] FUTURE CELL COUNT + DIFF BFL [SQCCBF] Order #: [id number] FUTURE SYNOVIAL FL,CRYSTAL ID/STAFF REV [SQSFCRID] Order #: [id number] FUTURE Prescriptions as of 12/25/2018 Sig: PREDNISONE 10 MG TABLET Take 1 tablet by mouth once d* Problem List As Of Date 12/25/2018 Noted Resolved Inflammatory arthritis [M19.90] INVALID FOR* Primary osteoarthritis involving multiple joint*INVALID FOR* Pain in left wrist [M25.532] INVALID FOR* Visit Notes: >> Leigh Ann Rodriguez Mon Dec 25, 2018 3:12 PM Status: Signed Marah Espinoza is here for an injection of Kenalog 40 mg Patient verified by name and date of . Allergies reviewed and updated: Yes Medication Details: Dose: 0.50ml Route: Intra-Articular Site: Left Wrist Shipping Coordinator: [employer] NDC: 3504-4236-85 Lot #: [id number] Expiration Date: 02/2020 Dr. Hanna present in clinic at time of injection. Patient tolerated well. Leigh Ann Rodriguez CMA Prescriptions ordered this encounter Disp Refills Start End PREDNISONE 10 MG TABLET 14 t* 0 12/25/2018 Route: ORAL Sig: Take 1 tablet by mouth once daily. TRIAMCINOLONE ACETONIDE 40 MG/ML BUD* 12/25/2018 12/25/2018 Route: IAtc LIDOCAINE 10 MG/ML (1 %) INJECTION S* 12/25/2018 12/25/2018 Route: OTHER Disposition: Return in about 3 weeks (around 01/15/2019) for discuss lab results. Follow-up and Disposition History Recorded Questionnaire: JILLIAN HOLLIS YEARLY ADL ASSESSMENT Toileting -> Independent Bathing -> Independent Upper Body Dressing -> Independent Lower Body Dressing -> Independent Grooming/Hygiene -> Independent Self Feeding -> Independent Home Management (laundry/cleaning/chor es/simple meal prep) -> Independent Encounter Status:Closed by EKATERINA HANNA MD on 12/25/18 Normal [facility] CRPon 12-25-2018 CRP [Mass/Vol] 0.77 mg/dL High 0.00-0.[address] [facility] Comment on above: Performed By: #### C RP3 #### [place] [address] Cult and Smr Body Fluidon Cult and Smr Body Fluid Test performed at [facility] No Bacteroides fragilis group isolated. No Clostridium perfringens isolated. No organisms seen Few Polymorphonuclear leukocytes Rare Mononuclear cells Many RBCs ORGANISM: *Staphylococcus species not aureus (ID: 1) In broth only ORGANISM: *Anaerobic gram-positive bacilli (ID: 2) Rare Anaerobic gram positive bacilli most closely resembling Cutibacterium species Normal [facility] Comment on above: Performed By: #### C _BF #### [place] [address] Ferritinon 12-25-2018 Ferritin [Mass/Vol] 18.80 ng/mL Low 26.00-388.00 [facility] Comment on above: Performed By: #### F ERR #### [place] [address] PROGRESSon 12-25-2018 PROGRESS HNO ID: [id number] Author: Ekaterina Hanna Service: ? Author Type: Physician Type: Progress Notes Filed: 12/25/2018 3:18 PM Note Text: RHEUMATOLOGY NEW PATIENT NOTE REFERRING PHYSICIAN: Self CHIEF COMPLAINT: Patient presents with: Joint Pain: Left arm swelling x 10 days. HPI: Marah Espinoza is a 48 year old male who presents with joint pain. He was diagnosed with RA 5 years ago by a science consultant in [place]. He was prescribed Celebrex. He had right knee swelling - aspiration and steroid injection was done. He now has left wrist pain and wrist since 10 days. He denies any triggering events. He took OTC pain medicine SL. He takes Ca-vit D glucosamine. Family history of autoimmune disease: father with joint pain. Not formally diagnosed. Siblings have bone and joint pain. Smoking status: Tobacco Use: Never Rheumatology REVIEW OF SYSTEMS: Constitutional: Recent Weight Change: No Fatigue: No Fever: No Night sweats: No Heent: Alopecia: No H/o Inflammatory eye disease (iritis/scleritis): No Hearing loss: No Frequent sinusitis: No Oral ulcers: YES Sicca: No Parotid swelling: No Hoarseness: No Dysphagia: No Heme/lymph: Lymphadenopathy: No Hematological abnormalities (anemia, thrombocytopenia, leukopenia): No Abnormal bleeding: No Skin: Malar or discoid lesions: No Photosensitivity: No Other rashes: No Raynaud's phenomenon: No Hives: No Tightness: No Nodules/bumps: No Easy Bruising: No Nail changes: No H/o psoriasis: No Gastroenterology: Nausea: {No Vomiting: No Change in bowel movements: No Heartburn: YES Respiratory: Dry cough/SOB: No Cardiovascular: Pain in chest: No Musculoskeletal: Per HPI Joint pain or swelling: No Prolonged morning stiffness: No Back pain or neck pain: No Muscle weakness: No Genitourinary: Vaginal dryness: No Rash/ulcers: No Neurological: Headaches: No Sensitivity or pain of hands and/or feet: No Psychiatry: Anxiety: No Depression: No Poor sleep: No H/o loss: No H/o thrombosis: No Increased susceptibility to infection: No No past medical history on file. PAST SURGICAL HISTORY Procedure Laterality Date - NONE 12/25/2018 Current Outpatient Medications: predniSONE (DELTASONE) 10 mg tablet Take 1 tablet by mouth once daily. No current facility-administered medications for this visit. ALLERGIES No Known Allergies No family history on file. Social History Socioeconomic History Marital status: Spouse name: Not on file Number of children: Not on file Years of education: Not on file Highest education level: Not on file Social Needs Financial resource strain: Not on file Food insecurity - worry: Not on file Food insecurity - inability: Not on file Transportation needs - medical: Not on file Transportation needs - non-medical: Not on file Occupational History Not on file Tobacco Use Smoking status: Never Smoker Smokeless tobacco: Never Used Substance and Sexual Activity Alcohol use: No Drug use: No Sexual activity: Yes Partners: Female Other Topics Concerns: Not on file Social History Narrative Not on file Occupation: Employer And Job Title: None on file Years Of Education Completed: Not specified Marital Status: History Review: I have reviewed and modified as needed, the following during this visit: Allergies, Past Medical History, Past Surgical History, Past Family History, Past Social History. BP 126/86 Pulse 79 Ht 177.8 cm (5' 10 ) Wt 69.9 kg (154 lb) SpO2 98% BMI 22.10 kg/m? Physical Exam GENERAL: Well appearing, alert, comfortable, in no acute distress, well-hydrated, well nourished. HEENT: Negative for external ears normal. Canals are clear. Both TMs visualized and are normal. Eye Exam normal. External nose normal, no nasal ulcer or throat ulcer. NECK: NECK Supple, no adenopathy; thyroid symmetric, normal size, no bruits CARDIAC: regular rate and rhythm, No murmur asculated. and Equal peripheral pulses RESPIRATORY: Lungs clear to auscultation. No wheezing, rhonchi, rales VASCULAR: RRR without murmur, gallop, or rubs. No ectopy. ABDOMEN: Soft, non tender. BS active. No masses or organomegaly. LYMPHATIC: Negative for adenopathy in the neck, axillae, groin, supraclavicular and auricular. NEURO: Motor and sensory exam normal MOTOR: Normal; including tone, gait, stressed gait, power and coordination. SKIN: Negative for alopecia, skin rash, malar rash, skin lesion, skin ulcer, pits, thickening, color changes, telangiectasias, nail changes, nail ridging, nail pitting, onycholysis MUSCULOSKELETAL: DIPS: Normal PIPS: Normal MCPs: Normal Wrists: Abnormal, left wrist synovitis, pitting edema over dorsum of left hand. Elbows: Normal Shoulders: Normal C-Spine: Normal Hips: Normal Knees: Normal Ankles: Normal MTPs / Toes: Normal Arches: Normal Summary of old labs/radiology: Review/request of outside labs and imaging: yes Pertinent labs: No results found for this basename: gluc, K, NA, CHLOR, CO2, CREAT, BUN, ANION, CA, TPROT, ALB, TBILI, ALKPHOS, AST,ALT,WBC,HB,PLT,wsr ,crp Serology: 2019 - Negative rheumatoid factor CCP IHSAN ESR 18 URIC ACID 4.6 Normal vitamin D, TSH, PSA Pertinent imaging: Assessment and Plan (M19.90) Inflammatory arthritis (primary encounter diagnosis) (M15.0) Primary osteoarthritis involving multiple joints (M25.532) Pain in left wrist 48-year-old male is here for evaluation and management recommendations for left wrist pain. Patient reports similar episode involving right knee several years ago which was aspirated and had steroid injection. He was prescribed Celebrex for rheumatoid arthritis. RF and CCP were negative. 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 No rash, Raynaud's phenomena and, GI issues. He has chronic low back pain which is triggered with prolonged standing. Joint aspiration and injection as below. Short course of prednisone for inflammatory arthritis. Labs as below in anticipation of starting disease modifying agent likely methotrexate. PROCEDURE NOTE: Aspiration / Injection of Joint Site(s): wrist Bursa / Tendon / Soft Tissue Site(s): wrist Side(s): Left Performed by: Ekaterina Hanna MD Assisted by: N/A Verification of the identity of the patient was obtained by 2 means: Consent: The risks, benefits, alternatives and personnel present with regards to the procedure were next discussed with the patient. The site was marked as appropriate. An audible time-out was performed and documented here. Time: 3:05 PM Antiseptic preparation: betadine and alcohol Local Anesthesia: Injectable 1% lidocaine: 2 cc Medication Injected: Kenalog 20 mg Fluid amount: 2ml Fluid nature/color: bloody Synovial fluid crystals analysis results: pending Reference range: Negative / None seen Complications: None. Patient left in satisfactory condition. Verbal instructions given. Ekaterina Hanna MD Office Visit on 12/25/18 - ASP/INJ INTERMED JOINT - XR HAND GENERAL 3V PA/LAT/OBL LT - XR HAND GENERAL 3V PA/LAT/OBL RT - XR FOOT GENERAL 3V AP/LAT/OBL LT - XR FOOT GENERAL 3V AP/LAT/OBL RT - XR KNEE SURVEY ARTHRITIS 1V AP BILAT - XR LUMBAR LIMITED 2V AP/LAT - XR SACROILIAC JOINTS 2V AP PELVIS/FERGUESON - HEP B SURF AG SCRN - HEP B SURF AB QUANT - HEP C AB IA BLOOD - HEP B CORE AB TOTAL - BLOOD TB SCREEN, INCUBATED - C-REACTIVE PROTEIN (CRP) - SED RATE WESTERGREN - FERRITIN BLD - CELL COUNT + DIFF BFL - SYNOVIAL FL,CRYSTAL ID/STAFF REV - BODY FLUID CULTURE AND GRAM STAIN Medication orders placed this encounter predniSONE (DELTASONE) 10 mg tablet Sig: Take 1 tablet by mouth once daily. Dispense: 14 tablet Refill: 0 Return in about 3 weeks (around 01/15/2019) for discuss lab results. Ekaterina Hanna MD Normal [facility] Sed Rateon 12-25-2018 Sed Rate 8 mm/hr Normal 0-15 [facility] Comment on above: Performed By: #### E SR #### [facility] [address] [address] CNOVon 12-19-2018 CNOV Office Visit (AKURFL ) MARAH ESPINOZA ([id number]) 1970 M [place] Date Time Provider Department 12/19/18 3:30 PM HANNA NAQVI During your visit today, we recorded the following information about you: Weight Height 70 kg 1.778 m Hanna Naqvi DO, MBA 12/19/2018 4:14 PM Signed ?? [facility] LOCATION: [address] [place] [address] NEW PATIENT HISTORY AND PHYSICAL EXAM PATIENT INFO: Marah Espinoza 48 year old REFERRING M.D.: Self PCP: No primary care provider on file. Consultation requested by Self and my final recommendations will be communicated back to the requesting physician by way of shared medical record or letter via [place] mail. Chief Complaint: testicular pain HPI Testicular pain He is from [place] and speaks very little citizen [place] He had a negative TUS in June He went to [facility] and had repeat TUS, report in bulgarian He states he has a varicocele 1-Duration: 2018 2-Location: testis 3-Severity: N/A 4-Quality: Not applicable 5-Context: N/A 6-Timing: N/A 7-Modifying factors: No treatment prior to referral 8-Associated signs AND symptoms: no additional symptoms IPSS: BIRDIE: PATHOLOGY: N/A LAB: No results found for: WBC, RBC, HB, HCT, MCV, MCH, MCHC, RDWCV, PLT, MPV, NEUTP, LYMPHP, MONOP, EODINP, BASOP, ABSNEUT, ABSLYM, ABSMONO, ABSEOSIN, ABSBASO No results found for: CREAT No results found for: PSA No results found for: UPH, SPGR, UGLUC, UBILI, UKET, UHB, UPROT, UROBILINOGEN, NITRITES, UWBC IMAGING: Testicular Ultrasound: Normal ALLERGIES: ALLERGIES No Known Allergies MEDICATIONS: No prescriptions on file. Does the patient take any herbal medications?: No Medication list reviewed and reconciled with patient: Yes HISTORIES No past medical history on file. No past surgical history on file. History reviewed. No pertinent family history. Negative family history: No SOCIAL HISTORY Social History Substance Use Topics - Smoking status: Never Smoker - Smokeless tobacco: Never Used - Alcohol use No Smoking Status Reviewed: Yes No question data found. REVIEW OF SYSTEMS General:No weight loss, malaise or fevers., SEE HPI HEENT:Negative for frequent or significant headaches, No changes in hearing or vision, no nose bleeds or other nasal problems Neck:Negative for lumps, goiter, pain and significant neck swelling Respiratory: Negative for cough, wheezing or shortness of breath. Cardiovascular: Negative for chest pain, leg swelling or palpitations. Gastrointestinal: Negative for abdominal discomfort, blood in stools or black stools or change in bowel habits Genitourinary: No history of dysuria, frequency or incontinence Musculoskeletal: Negative for joint pain or swelling, back pain or muscle pain. Skin:Negative for lesions, rash, and itching. Psychologic: No dissatisfaction with life, depression or suicidal thoughts The remainder of the ROS was negative. PHYSICAL EXAMINATION Ht 177.8 cm (5' 10 ) Wt 70 kg (154 lb 5.2 oz) BMI 22.14 kg/m? General appearance: Well appearing, alert, in no acute distress and well-hydrated, well nourished Skin: Skin color, texture, turgor normal, no suspicious rashes or lesions Head: Normocephalic, no masses, lesions, tenderness or abnormalities Neck: Supple, no adenopathy; thyroid symmetric, normal size, no bruits Lungs: Clear to auscultation no wheezing or rhonchi Heart: RRR without murmur, gallop, or rubs. No ectopy Abdomen: Normal abdominal exam, Abdomen soft, non-tender. Bowel sounds normal. No masses, organomegaly Extremities: Extremities normal. No deformities, edema, or skin discoloration. Good capillary refill. Genitourinary: No scrotal lesions, cysts, rashes. Epididymis AND testes: normal size, position, without masses Urethra AND meatus: normal size AND position w/o lesion or discharge Penis: circumcised, w/o plaques, lesions, masses, or deformities. PVR: NA IMPRESSION/PLAN: Testicular pain Negative examination Negative TUS here in 06/2018 Went to [facility], had TUS reported to have varicocele Requesting repeat TUS Requesting PSA Hanna Naqvi DO MBA Letter to: No primary care provider on file. Referring Provider: SELF [[id number]] Allergies As of Date: 12/19/2018 (No Known Allergies) Date Reviewed: 12/19/2018 Reviewed by: Hanna Naqvi - Fully Assessed Reason for Visit: Testicular Pain [823] Primary Visit Diagnosis:Testicular pain [N50.819] Other Visit Diagnosis:Screening for prostate cancer [Z12.5] Order(s):UA DIP, URINE (POC) [[id number]] Order #: [id number]. #:[id number] US SCROTUM AND CONTENTS [[id number]] Order #: [id number] FUTURE US DOPPLER COMPLETE [[id number]] Order #: [id number] FUTURE PSA/PROSTSPECAG DIAG [SQPSA] Order #: [id number] FUTURE Problem List As Of Date: 12/19/2018 (None) Follow-up and Disposition History Recorded Encounter Status:Closed by HANNA NAQVI on 12/19/18 Normal [facility] PROGRESSon 12-19-2018 PROGRESS HNO ID: [id number] Author: Hanna Naqvi Service: (none) Author Type: Physician Type: Progress Notes Filed: 12/19/2018 4:14 PM Note Text: ?? [facility] LOCATION: [address] [place] [address] NEW PATIENT HISTORY AND PHYSICAL EXAM PATIENT INFO: Marah Espinoza 48 year old REFERRING M.D.: Self PCP: No primary care provider on file. Consultation requested by Self and my final recommendations will be communicated back to the requesting physician by way of shared medical record or letter via [place] mail. Chief Complaint: testicular pain HPI Testicular pain He is from [place] and speaks very little citizen [place] He had a negative TUS in June He went to [facility] and had repeat TUS, report in [place] He states he has a varicocele 1-Duration: 2018 2-Location: testis 3-Severity: N/A 4-Quality: Not applicable 5-Context: N/A 6-Timing: N/A 7-Modifying factors: No treatment prior to referral 8-Associated signs AND symptoms: no additional symptoms IPSS: BIRDIE: PATHOLOGY: N/A LAB: No results found for: WBC, RBC, HB, HCT, MCV, MCH, MCHC, RDWCV, PLT, MPV, NEUTP, LYMPHP, MONOP, EODINP, BASOP, ABSNEUT, ABSLYM, ABSMONO, ABSEOSIN, ABSBASO No results found for: CREAT No results found for: PSA No results found for: UPH, SPGR, UGLUC, UBILI, UKET, UHB, UPROT, UROBILINOGEN, NITRITES, UWBC IMAGING: Testicular Ultrasound: Normal ALLERGIES: ALLERGIES No Known Allergies MEDICATIONS: No prescriptions on file. Does the patient take any herbal medications?: No Medication list reviewed and reconciled with patient: Yes HISTORIES No past medical history on file. No past surgical history on file. History reviewed. No pertinent family history. Negative family history: No SOCIAL HISTORY Social History Substance Use Topics - Smoking status: Never Smoker - Smokeless tobacco: Never Used - Alcohol use No Smoking Status Reviewed: Yes No question data found. REVIEW OF SYSTEMS General:No weight loss, malaise or fevers., SEE HPI HEENT:Negative for frequent or significant headaches, No changes in hearing or vision, no nose bleeds or other nasal problems Neck:Negative for lumps, goiter, pain and significant neck swelling Respiratory: Negative for cough, wheezing or shortness of breath. Cardiovascular: Negative for chest pain, leg swelling or palpitations. Gastrointestinal: Negative for abdominal discomfort, blood in stools or black stools or change in bowel habits Genitourinary: No history of dysuria, frequency or incontinence Musculoskeletal: Negative for joint pain or swelling, back pain or muscle pain. Skin:Negative for lesions, rash, and itching. Psychologic: No dissatisfaction with life, depression or suicidal thoughts The remainder of the ROS was negative. PHYSICAL EXAMINATION Ht 177.8 cm (5' 10 ) Wt 70 kg (154 lb 5.2 oz) BMI 22.14 kg/m? General appearance: Well appearing, alert, in no acute distress and well-hydrated, well nourished Skin: Skin color, texture, turgor normal, no suspicious rashes or lesions Head: Normocephalic, no masses, lesions, tenderness or abnormalities Neck: Supple, no adenopathy; thyroid symmetric, normal size, no bruits Lungs: Clear to auscultation no wheezing or rhonchi Heart: RRR without murmur, gallop, or rubs. No ectopy Abdomen: Normal abdominal exam, Abdomen soft, non-tender. Bowel sounds normal. No masses, organomegaly Extremities: Extremities normal. No deformities, edema, or skin discoloration. Good capillary refill. Genitourinary: No scrotal lesions, cysts, rashes. Epididymis AND testes: normal size, position, without masses Urethra AND meatus: normal size AND position w/o lesion or discharge Penis: circumcised, w/o plaques, lesions, masses, or deformities. PVR: NA IMPRESSION/PLAN: Testicular pain Negative examination Negative TUS here in 06/2018 Went to [facility], had TUS reported to have varicocele Requesting repeat TUS Requesting PSA Hanna Naqvi DO MBA Letter to: No primary care provider on file. Normal [facility] Encounters Encounter Date Encounter Type Care Provider Facility Start: 07-03-2020 Patient encounter procedure Sonny story [facility] Work Phone: Start: 03-27-2020 Patient encounter procedure Sonny story [facility] Work Phone: Social History Date Type Detail Facility Assertion Tobacco smoking consumption unknown (finding) [facility] Work Phone: Functional Status Date Assessment Result Facility NEGATED: Highlighted row Functional performance Functional status health issues are not documented Disease [facility] Work Phone: Mental Status Date Assessment Result Facility NEGATED: Highlighted row Cognitive function [Interpretation] Cognitive status health issues are not documented Disease [facility] [address] Work Phone: Progress note 08-27-2021 Note Date & Type Note Facility 08-27-2021 Note HNO ID: [id number] Author: Geovany Yusuf PA-C Service: ? Author Type: Physician Soil Chemist Type: Progress Notes Filed: 08/31/2021 8:43 PM Note Text: Subjective HPI HPI Marah Espinoza is a 50 year old male who presents today for CC of progressive redness and tenderness of third digit that started 10 days ago. Has gotten worse since. Progressive redness and tenderness. No fevers/chills. Notes that he has a bad habit of biting his fingernails. BP 144/84 Pulse 76 Temp 36.4 ?C (97.5 ?F) (Tympanic) Resp 18 Wt 79.5 kg (175 lb 3.2 oz) SpO2 98% BMI 25.14 kg/m? ALLERGIES No Known Allergies ACTIVE PROBLEM LIST Inflammatory Arthritis Rheumatoid Arthritis of Multiple Sites With Negative Rheumatoid Factor (Hcc) High Risk Medication Use No family history on file. Social History Tobacco Use - Smoking status: Never Smoker - Smokeless tobacco: Never Used Substance Use Topics - Alcohol use: No - Drug use: No Review of Systems Constitutional: Negative for chills and fever. Objective Physical Exam Musculoskeletal: Hands: Comments: Erythematous area of fluctuance noted in paronychial region along nail's edge ulnar aspect - markedly tender to palpation. ASSESSMENT/PLAN: 1. Paronychia of finger, right - ICD9: 681.02, ICD10: L03.011 Clinical presentation c/w paronychia. IANDD performed w/ 18 G needle; Purulent discharge expressed and sent for culture. Will go ahead and treat empirically w/ keflex, and adjust treatment as necessary pending results. Discussed medication indications, proper use, and potential adverse effects. All questions and concerns addressed to patient satisfaction. Advise warm soaks, chlorhexidine antiseptic rinse rxed per pt request. - WOUND CULTURE AND GRAM STAIN - CEPHALEXIN 500 MG CAPSULE - CHLORHEXIDINE GLUCONATE 4 % TOPICAL LIQUID Pt advised to see PCP if symptoms persist or progress. Reviewed red flags with patient and when to seek care sooner. The patient indicates understanding of these issues and agrees with the plan. Geovany Yusuf PA-C [facility] Summary Purpose Family History No Family History Records FoundNo Family History Records FoundNo Family History Records FoundNo Family History Records Found Advance Directives No Advanced Directives Records FoundNo Advanced Directives Records FoundNo Advanced Directives Records FoundNo Advanced Directives Records Found Procedure Findings Note HNO ID: [id number] Author: Jhony Hanna Service: ? Author Type: Physician Type: Procedures Filed: 12/25/2018 3:18 PM Note Text: PROCEDURE NOTE: Aspiration / Injection of Joint Site(s): wrist Bursa / Tendon / Soft Tissue Site(s): wrist Side(s): Left Performed by: Ekaterina Hanna MD Assisted by: N/A Verification of the identity of the patient was obtained by 2 means: Consent: The risks, benefits, alternatives and personnel present with regards to the procedure were next discussed with the patient. The site was marked as appropriate. An audible time-out was performed and documented here. Time: 3:05 PM Antiseptic preparation: betadine and alcohol Local Anesthesia: Injectable 1% lidocaine: 2 cc Medication Injected: Kenalog 20 mg Fluid amount: 2ml Fluid nature/color: bloody Synovial fluid crystals analysis results: pending Reference range: Negative / None seen Complications: None. Patient left in satisfactory condition. Verbal instructions given. Ekaterina Hanna MD Additional Source Comments (unrecognized sect ion and content) No Status Records FoundNo Status Records FoundNo Status Records FoundNo Status Records Found INFORMATION SOURCE (unrecogn ized section and content) DATE CREATED AUTHOR 09/09/2019 [facility] DATE CREATED AUTHOR AUTHOR'S ORGANIZ ATION 11/07/2019 [facility] DATE CREATED AUTHOR AUTHOR'S ORGANIZ ATION 07/04/2020 [facility] DATE CREATED AUTHOR AUTHOR'S ORGANIZ ATION 11/30/2021 [facility] FOR RECORDS PERTAINING TO PATIENTS WHO ARE OR HAVE BEEN ENROLLED IN A CHEMICAL DEPENDENCY/SUBSTANCEABUSE PROGRAM, SOME INFORMATION MAY BE OMITTED. This clinical summary was aggregated from multiple sources. Caution should be exercised in using it in the provision of clinical care. This summary normalizes information from multiple sources, and as a consequence, information in this document may materially change the coding, format and clinical context of patient data. In addition, data may be omitted in some cases. CLINICAL DECISIONS SHOULD BE BASED ON THE PRIMARY CLINICAL RECORDS. [facility]. provides no warranty or guarantee of the accuracy or completeness of information in this document.
[2024-08-23 12:10] LABS: ANTINUCLEAR ANTIBODIES DIRECT Negative (Negative)
[2024-08-23 14:10] LABS: CCP IgG Antibodies 10 units (0-19)
== END | disposition home or self-care (01) ==
LOC: BIMLAB 15:37
PROVIDERS: PCP Nurse Practitioner; Referring Provider Nurse Practitioner; Visit Provider Nurse Practitioner
DX: M17.10 Unilateral primary osteoarthritis, unspecified knee (principal); E78.1 Pure hyperglyceridemia; R79.89 Other specified abnormal findings of blood chemistry
CPT/HCPCS: 36415; 80053; 80061; 84443; 85025; 85652; 86038; 86140; 86200; 86225; 86235; 86431

== ENCOUNTER → 2025-02-01 | Outpatient (CLI) | payer BC, SELFPAY ==
[2025-02-01 13:17] LABS: Cholesterol 143 mg/dL (<=200); High Density Lipoprotein 32 mg/dL; Low Density Lipoprotein Calc. 60 mg/dL; Triglycerides 256 mg/dL; Very Low Density Lipoprotein 51 mg/dL (5-40); cholesterol:hdl ratio screen 4.51
[2025-02-01 16:22] LABS: Rheumatoid Factor < 10.0 IU/mL (<15)
[2025-02-04 15:08] LABS: CCP IgG Antibodies 7 units (0-19)
== END | disposition home or self-care (01) ==
LOC: BIMLAB 09:31
PROVIDERS: PCP Internal Medicine; Referring Provider Internal Medicine; Visit Provider Internal Medicine
DX: I10 Essential (primary) hypertension (principal); M25.50 Pain in unspecified joint
CPT/HCPCS: 36415; 80061; 86200; 86431